=== PATIENT | female | born 1935 | race Hispanic/Latino ===

== ENCOUNTER 2017-04-17 10:32 | Emergency (ER) | payer MEDICARE ==
[~2017-04-17 10:32] MED LIST: ASPI-1005 PO; CARV6.2579 PO; ISOS30TA PO; LISI5TAB PO; SIMV20TA6 PO
[2017-04-17 11:21] LABS: APPEARANCE,URINE Clear (CLEAR); BILIRUBIN,URINE Negative (NEGATIVE); COLOR,URINE Yellow (YELLOW); GLUCOSE, URINE (UA) Negative (NEGATIVE); KETONES,URINE Negative (NEGATIVE); LEUKOCYTE ESTERASE ,URINE Negative (NEGATIVE); NITRATE,URINE Negative (NEGATIVE); OCCULT BLOOD,URINE Moderate (NEGATIVE); PROTEIN,URINE Negative (NEGATIVE); UROBILINOGEN,URINE 0.2 mg/dL (0.2-1.0)
[2017-04-17 11:27] LABS: BASOPHILS % (AUTO) 0.1 % (0.0-5.0); HEMATOCRIT 32.7 % (36-48); LYMPHOCYTES % (AUTO) 36.4 % (21.0-51.0); MEAN CORPUSCULAR HEMOGLOBIN 30.9 pg (27.0-33.0); MEAN CORPUSCULAR VOLUME 88.1 fL (79-99); MONOCYTES % (AUTO) 5.7 % (3.0-13.0); NEUTROPHILS % (AUTO) 57.8 % (40.0-77.0); PLATELET COUNT (AUTO) 191 K/uL (130-400); RED BLOOD CELL COUNT(AUTO) 3.71 MIL/uL (4.00-5.50); RED CELL DISTRIBUTION WIDTH 14.1 % (11.0-15.5); WHITE BLOOD COUNT (AUTO) 6.5 K/uL (4.8-10.8)
[2017-04-17 11:35] LABS: CREATININE 0.9 mg/dL (0.5-1.5); POTASSIUM 4.1 mmol/L (3.5-5.1)
[2017-04-17 11:40] LABS: ALBUMIN 3.1 g/dL (3.5-5.0); BILIRUBIN,TOTAL 0.3 mg/dL (0.2-1.0); TOTAL PROTEIN, SERUM 6.4 g/dL (6.0-8.3)
[2017-04-17 11:41] LABS: BACTERIA,URINE Rare /HPF (None Seen); WBC,URINE None Seen /HPF (0-1)
[2017-04-17 11:42] LABS: SQUAMOUS EPITHELIAL CELL,UR 0-2 /LPF (0-2)
== END 2017-04-17 15:30 | disposition home or self-care (01) ==
LOC: EDH 10:32
DX: K57.32 Diverticulitis of large intestine without perforation or abscess without bleeding (principal); I10 Essential (primary) hypertension; E78.5 Hyperlipidemia, unspecified
CPT/HCPCS: 36415; 74176; 80053; 81001; 83690; 85025

== ENCOUNTER → 2018-07-19 | Outpatient (CLI) | payer MEDICARE | END | disposition home or self-care (01) | LOC: SHCH 10:54 | PROVIDERS: ATTEND Internal Medicine Cardiovascular Disease | DX: R60.0 Localized edema (principal) | CPT/HCPCS: 93970 ==

== ENCOUNTER 2018-09-17 21:20 | Emergency (ER) | payer MEDICARE ==
[2018-09-17 21:56] LABS: APPEARANCE,URINE Clear (CLEAR); BILIRUBIN,URINE Negative (NEGATIVE); COLOR,URINE Yellow (YELLOW); GLUCOSE, URINE (UA) Negative (NEGATIVE); KETONES,URINE Negative (NEGATIVE); LEUKOCYTE ESTERASE ,URINE Large (NEGATIVE); NITRATE,URINE Negative (NEGATIVE); OCCULT BLOOD,URINE Moderate (NEGATIVE); PROTEIN,URINE Negative (NEGATIVE); UROBILINOGEN,URINE 0.2 mg/dL (0.2-1.0)
[2018-09-17 22:11] LABS: BACTERIA,URINE Few /HPF (None Seen); RBC,URINE None Seen /HPF (0-1)
[2018-09-17] MEDS ORDERED: ACETAMINOPHEN EXTRA STRENGTH 500 MG TABLET ONE (22:11)
[2018-09-17 22:28] LABS: BASOPHILS % (AUTO) 0.2 % (0.0-5.0); LYMPHOCYTES % (AUTO) 15.7 % (21.0-51.0); MEAN CORPUSCULAR HEMOGLOBIN 29.3 pg (27.0-33.0); MEAN CORPUSCULAR HGB CONC 33.1 g/dL (32.0-36.0); MEAN CORPUSCULAR VOLUME 88.5 fL (79-99); MONOCYTES % (AUTO) 6.5 % (3.0-13.0); NEUTROPHILS % (AUTO) 77.6 % (40.0-77.0); PLATELET COUNT (AUTO) 225 K/uL (130-400); RED BLOOD CELL COUNT(AUTO) 3.84 MIL/uL (4.00-5.50); RED CELL DISTRIBUTION WIDTH 14.1 % (11.0-15.5); WHITE BLOOD COUNT (AUTO) 9.3 K/uL (4.8-10.8)
[2018-09-17 22:47] LABS: CREATININE 1.7 mg/dL (0.5-1.5); POTASSIUM 4.2 mmol/L (3.5-5.1)
[2018-09-17 22:53] LABS: ALBUMIN 3.2 g/dL (3.5-5.0); BILIRUBIN,TOTAL 0.5 mg/dL (0.2-1.0); TOTAL PROTEIN, SERUM 6.9 g/dL (6.0-8.3)
[2018-09-17 22:57] LABS: INR 0.95 (0.85-1.15); PARTIAL THROMBOPLASTIN TIME 31.6 SEC (26.3-35.5)
[2018-09-17] MEDS ORDERED: CEFTRIAXONE SODIUM 1 GM ONE (23:39)
[2018-09-17] MEDS ORDERED: SODIUM CHLORIDE 0.9% 50 ML IV ONE (23:40)
== END 2018-09-18 00:13 | disposition home or self-care (01) ==
LOC: EDH 21:20
DX: N39.0 Urinary tract infection, site not specified (principal); E78.5 Hyperlipidemia, unspecified; I10 Essential (primary) hypertension; Z79.899 Other long term (current) drug therapy
CPT/HCPCS: 36415; 74176; 80053; 81001; 83605; 85025; 85610; 85730; 87040 ×2; 87088; 87186 ×2; 96374; 99285; J0696

== ENCOUNTER 2018-09-28 14:21 | Emergency (ER) | payer MEDICARE ==
[2018-09-28 14:42] LABS: APPEARANCE,URINE Clear (CLEAR); BILIRUBIN,URINE Negative (NEGATIVE); COLOR,URINE Yellow (YELLOW); GLUCOSE, URINE (UA) Negative (NEGATIVE); KETONES,URINE Negative (NEGATIVE); LEUKOCYTE ESTERASE ,URINE Negative (NEGATIVE); NITRATE,URINE Negative (NEGATIVE); OCCULT BLOOD,URINE Moderate (NEGATIVE); PH,URINE 5.5 (5.0-8.0); PROTEIN,URINE Negative (NEGATIVE); UROBILINOGEN,URINE 0.2 mg/dL (0.2-1.0)
[2018-09-28] MEDS ORDERED: LIDOCAINE HCL-MPF 1% 2ML VIAL ONE (15:01)
[2018-09-28] MEDS ORDERED: PHENAZOPYRIDINE HCL 200 MG TABLET ONE (15:01)
[2018-09-28] MEDS ORDERED: CEFTRIAXONE SODIUM 1 GM ONE (15:01)
== END 2018-09-28 15:46 | disposition home or self-care (01) ==
LOC: EDH 14:21
DX: N39.0 Urinary tract infection, site not specified (principal); I10 Essential (primary) hypertension; E78.5 Hyperlipidemia, unspecified; Z90.49 Acquired absence of other specified parts of digestive tract
CPT/HCPCS: 81003; 87088; 96372; 99284; J0696; J3490

== ENCOUNTER 2018-09-30 12:08 | Inpatient (IN) | payer MEDICARE | END 2018-10-08 17:30 | disposition home or self-care (01) | LOC: EDH 12:08 → EDHIP 14:15 → 3DH 15:13 | DX: K85.90 Acute pancreatitis without necrosis or infection, unspecified (principal); R10.11 Right upper quadrant pain; R74.0 Nonspecific elevation of levels of transaminase and lactic acid dehydrogenase [LDH]; K57.30 Diverticulosis of large intestine without perforation or abscess without bleeding ==

== ENCOUNTER 2018-11-03 05:25 | Day surgery (SDC) | payer MEDICARE ==
[~2018-11-03] VITALS: Ht 157.5 cm; Wt 65.8 kg
[~2018-11-03 05:25] MED LIST changes: +AMLO5TAB9 PO; -ASPI-1005 PO; +ATOR40TA71 PO; +BISA5TAB12 PO; +CARV12.511 PO; -CARV6.2579 PO; +ESOM40CA54 PO; -ISOS30TA PO; +LISI2.5T2 PO; -LISI5TAB PO; +NAPR-1023 PO; +OXYB5TAB10 PO; -SIMV20TA6 PO; +SUCR1TAB2 PO; +TRAZ-185 PO
[2018-11-03] MEDS ORDERED: SODIUM CHLORIDE 0.9% 1000ML 1,000 ML IV ONE (05:33)
[2018-11-03 06:07] VITALS: BP 127/54
[2018-11-03] MEDS ORDERED: PROPOFOL 10 MG/ML 20ML VIAL IV ONE (06:50)
[2018-11-03] MEDS ORDERED: SIMETHICONE 40 MG/0.6 ML ML ONE (06:58)
[2018-11-03 07:18] VITALS: BP 102/42
[2018-11-03 07:23] VITALS: BP 106/50
[2018-11-03 07:28] VITALS: BP 107/56
[2018-11-03 07:34] VITALS: BP 114/60
== END 2018-11-03 07:45 | disposition home or self-care (01) ==
LOC: ENDO 05:25 → DAH 05:25 → ENDO 07:45
PROVIDERS: ATTEND Internal Medicine
DX: K29.50 Unspecified chronic gastritis without bleeding (principal); K31.7 Polyp of stomach and duodenum; K44.9 Diaphragmatic hernia without obstruction or gangrene; I10 Essential (primary) hypertension; E78.5 Hyperlipidemia, unspecified; K21.9 Gastro-esophageal reflux disease without esophagitis; G47.00 Insomnia, unspecified; I25.10 Atherosclerotic heart disease of native coronary artery without angina pectoris; Z90.49 Acquired absence of other specified parts of digestive tract; Z90.710 Acquired absence of both cervix and uterus; Z79.899 Other long term (current) drug therapy; Z82.49 Family history of ischemic heart disease and other diseases of the circulatory system
CPT/HCPCS: 43239; 88305; 93005; A4606; J2704; J7030

== ENCOUNTER → 2019-11-29 | Outpatient (CLI) | payer MEDICARE ==
[~2019-11-29] MED LIST changes: -OXYB5TAB10 PO; +OXYB5TAB15 PO
== END | disposition home or self-care (01) ==
LOC: RAH 08:26
PROVIDERS: ATTEND Internal Medicine Gastroenterology
DX: N28.1 Cyst of kidney, acquired (principal); K85.00 Idiopathic acute pancreatitis without necrosis or infection; R93.2 Abnormal findings on diagnostic imaging of liver and biliary tract; R94.5 Abnormal results of liver function studies
CPT/HCPCS: 76700

== ENCOUNTER → 2020-10-09 | Outpatient (CLI) | payer MEDICARE ==
[~2020-10-09] MED LIST changes: +AMLO-257 PO; -AMLO5TAB9 PO; +LISI2.5T13 PO; -LISI2.5T2 PO
== END | disposition home or self-care (01) ==
LOC: SHCH 11:17
PROVIDERS: ATTEND Internal Medicine Cardiovascular Disease
DX: R01.1 Cardiac murmur, unspecified (principal)
CPT/HCPCS: 93306; 93356

== ENCOUNTER 2021-11-30 18:43 | Emergency (ER) | payer MEDICARE ==
[~2021-11-30] VITALS: Ht 152.4 cm; Wt 64.4 kg
[2021-11-30 19:45] LABS: BASOPHILS % (AUTO) 0.3 % (0.0-5.0); HEMATOCRIT 36.4 % (36-48); LYMPHOCYTES % (AUTO) 32.2 % (21.0-51.0); MEAN CORPUSCULAR HEMOGLOBIN 29.8 pg (27.0-33.0); MEAN CORPUSCULAR HGB CONC 34.1 g/dL (32.0-36.0); MEAN CORPUSCULAR VOLUME 87.5 fL (79-99); MONOCYTES % (AUTO) 6.8 % (3.0-13.0); PLATELET COUNT (AUTO) 205 K/uL (130-400); RED BLOOD CELL COUNT(AUTO) 4.16 MIL/uL (4.00-5.50); RED CELL DISTRIBUTION WIDTH 13.3 % (11.0-15.5); WHITE BLOOD COUNT (AUTO) 9.8 K/uL (4.8-10.8)
[2021-11-30 19:54] LABS: APPEARANCE,URINE CLEAR (CLEAR); BILIRUBIN,URINE NEGATIVE (NEGATIVE); COLOR,URINE YELLOW (YELLOW); GLUCOSE, URINE (UA) NEGATIVE (NEGATIVE); KETONES,URINE NEGATIVE (NEGATIVE); LEUKOCYTE ESTERASE ,URINE NEGATIVE Leu/uL (NEGATIVE); NITRATE,URINE NEGATIVE (NEGATIVE); OCCULT BLOOD,URINE MODERATE (NEGATIVE); PROTEIN,URINE NEGATIVE (NEGATIVE); UROBILINOGEN,URINE 0.2 mg/dL (0.2-1.0)
[2021-11-30 20:04] LABS: BACTERIA,URINE Rare /HPF (None Seen); SQUAMOUS EPITHELIAL CELL,UR Few /HPF (0-2); WBC,URINE 0-1 /HPF (0-1)
[2021-11-30 20:09] LABS: ALBUMIN 3.5 g/dL (3.5-5.0); CREATININE 1.2 mg/dL (0.5-1.5); POTASSIUM 4.1 mmol/L (3.5-5.1); TOTAL PROTEIN, SERUM 6.9 g/dL (6.0-8.3)
[2021-11-30] MEDS ORDERED: CEFTRIAXONE 1G VIAL IVP ONE (21:30)
[2021-11-30] MEDS ORDERED: CEPH500B PO (22:51)
[2021-11-30 23:16] VITALS: BP 149/55
== END 2021-11-30 23:31 | disposition home or self-care (01) ==
LOC: EDH 18:43
DX: N30.80 Other cystitis without hematuria (principal); I10 Essential (primary) hypertension; Z79.899 Other long term (current) drug therapy; Z98.890 Other specified postprocedural states
CPT/HCPCS: 99284; 74176; 96374; 80053; 85025; 81001; 36415; J0696

== ENCOUNTER → 2022-02-03 | Outpatient (CLI) | payer MEDICARE ==
[~2022-02-03] MED LIST changes: +BISA-151 PO; -BISA5TAB12 PO; +CEPH500B PO
[2022-02-03 12:10] LABS: ALBUMIN 3.4 g/dL (3.5-5.0); POTASSIUM 3.8 mmol/L (3.5-5.1)
== END | disposition home or self-care (01) ==
LOC: LAB 10:39
PROVIDERS: ATTEND Internal Medicine Cardiovascular Disease
DX: E78.2 Mixed hyperlipidemia (principal)
CPT/HCPCS: 36415; 80053; 80061

== ENCOUNTER 2022-02-14 10:10 | Emergency (ER) | payer MEDICARE ==
[~2022-02-14] VITALS: Ht 149.9 cm; Wt 64.0 kg
[2022-02-14 12:39] LABS: BASOPHILS % (AUTO) 0.4 % (0.0-5.0); HEMATOCRIT 39.3 % (36-48); LYMPHOCYTES % (AUTO) 16.3 % (21.0-51.0); MEAN CORPUSCULAR HEMOGLOBIN 29.5 pg (27.0-33.0); MEAN CORPUSCULAR HGB CONC 34.1 g/dL (32.0-36.0); MEAN CORPUSCULAR VOLUME 86.6 fL (79-99); MONOCYTES % (AUTO) 6.3 % (3.0-13.0); NEUTROPHILS % (AUTO) 75.1 % (40.0-77.0); PLATELET COUNT (AUTO) 273 K/uL (130-400); RED BLOOD CELL COUNT(AUTO) 4.54 MIL/uL (4.00-5.50); RED CELL DISTRIBUTION WIDTH 13.2 % (11.0-15.5); WHITE BLOOD COUNT (AUTO) 12.4 K/uL (4.8-10.8)
[2022-02-14 12:54] LABS: ALBUMIN 3.5 g/dL (3.5-5.0); POTASSIUM 3.6 mmol/L (3.5-5.1); TOTAL PROTEIN, SERUM 7.5 g/dL (6.0-8.3)
[2022-02-14 13:41] LABS: APPEARANCE,URINE CLEAR (CLEAR); BILIRUBIN,URINE NEGATIVE (NEGATIVE); COLOR,URINE COLORLESS (YELLOW); GLUCOSE, URINE (UA) NEGATIVE (NEGATIVE); KETONES,URINE NEGATIVE (NEGATIVE); LEUKOCYTE ESTERASE ,URINE NEGATIVE Leu/uL (NEGATIVE); NITRATE,URINE NEGATIVE (NEGATIVE); OCCULT BLOOD,URINE MODERATE (NEGATIVE); PROTEIN,URINE NEGATIVE (NEGATIVE); UROBILINOGEN,URINE 0.2 mg/dL (0.2-1.0)
[2022-02-14 13:48] LABS: BACTERIA,URINE RARE /HPF (None Seen); RBC,URINE 0-1 /HPF (0-1); SQUAMOUS EPITHELIAL CELL,UR RARE /HPF (0-2); WBC,URINE 0-1 /HPF (0-1)
[2022-02-14 15:08] VITALS: BP 134/70
== END 2022-02-14 15:22 | disposition home or self-care (01) ==
LOC: EDH 10:10
DX: M25.552 Pain in left hip (principal); N39.0 Urinary tract infection, site not specified; E78.00 Pure hypercholesterolemia, unspecified; I10 Essential (primary) hypertension; Z79.1 Long term (current) use of non-steroidal anti-inflammatories (NSAID); Z79.899 Other long term (current) drug therapy
CPT/HCPCS: 36415; 72131; 72192; 80053; 81001; 83690; 85025

== ENCOUNTER → 2022-02-26 | Outpatient (CLI) | payer MEDICARE | END | disposition home or self-care (01) | LOC: RAH 10:48 | PROVIDERS: ATTEND Internal Medicine Gastroenterology | DX: K21.9 Gastro-esophageal reflux disease without esophagitis (principal); R10.13 Epigastric pain; R93.2 Abnormal findings on diagnostic imaging of liver and biliary tract | CPT/HCPCS: 76700 ==

== ENCOUNTER → 2022-04-07 | Outpatient (CLI) | payer MEDICARE ==
[~2022-04-07] MED LIST changes: +DOCU-116 PO; +PHEN-776 PO
== END | disposition home or self-care (01) ==
LOC: RAH 07:14
PROVIDERS: ATTEND Internal Medicine Gastroenterology
DX: R10.13 Epigastric pain (principal); R11.0 Nausea
CPT/HCPCS: 78264; A9541

== ENCOUNTER → 2022-04-15 | Outpatient (CLI) | payer MEDICARE ==
[2022-04-15 13:11] LABS: ALBUMIN 3.1 g/dL (3.5-5.0); CREATININE 0.9 mg/dL (0.5-1.5); POTASSIUM 4.7 mmol/L (3.5-5.1); TOTAL PROTEIN, SERUM 6.7 g/dL (6.0-8.3)
== END | disposition home or self-care (01) ==
LOC: LAB 10:17
PROVIDERS: ATTEND Internal Medicine Cardiovascular Disease
DX: E78.2 Mixed hyperlipidemia (principal)
CPT/HCPCS: 36415; 80053; 80061

== ENCOUNTER 2022-04-28 19:14 | Emergency (ER) | payer MEDICARE ==
[~2022-04-28] VITALS: Ht 134.6 cm; Wt 60.8 kg
[2022-04-28 20:31] LABS: APPEARANCE,URINE CLEAR (CLEAR); BILIRUBIN,URINE NEGATIVE (NEGATIVE); COLOR,URINE COLORLESS (YELLOW); GLUCOSE, URINE (UA) NEGATIVE (NEGATIVE); KETONES,URINE NEGATIVE (NEGATIVE); LEUKOCYTE ESTERASE ,URINE 75 Leu/uL (NEGATIVE); NITRATE,URINE NEGATIVE (NEGATIVE); OCCULT BLOOD,URINE SMALL (NEGATIVE); PROTEIN,URINE NEGATIVE (NEGATIVE); UROBILINOGEN,URINE 0.2 mg/dL (0.2-1.0)
[2022-04-28 20:36] LABS: BACTERIA,URINE FEW /HPF (None Seen); SQUAMOUS EPITHELIAL CELL,UR RARE /HPF (0-2)
[2022-04-28] MEDS ORDERED: CEPH500B PO (21:28)
[2022-04-28 21:30] VITALS: BP 160/80
== END 2022-04-28 21:49 | disposition home or self-care (01) ==
LOC: EDH 19:14
DX: N39.0 Urinary tract infection, site not specified (principal); R51.9 Headache, unspecified; M19.90 Unspecified osteoarthritis, unspecified site; E78.00 Pure hypercholesterolemia, unspecified; I10 Essential (primary) hypertension; Z90.49 Acquired absence of other specified parts of digestive tract; Z20.822 Contact with and (suspected) exposure to COVID-19
CPT/HCPCS: 99283; 87635; 87077; 87088; 87186; 87880; 87804 ×2; 81001; C9803

== ENCOUNTER → 2022-05-14 | Outpatient (CLI) | payer MEDICARE | END | disposition home or self-care (01) | LOC: RAH 14:29 | PROVIDERS: ATTEND Internal Medicine | DX: S72.001A Fracture of unspecified part of neck of right femur, initial encounter for closed fracture (principal); K57.30 Diverticulosis of large intestine without perforation or abscess without bleeding; W19.XXXA Unspecified fall, initial encounter; Y93.89 Activity, other specified; Y92.89 Other specified places as the place of occurrence of the external cause; Y99.8 Other external cause status | CPT/HCPCS: 72192 ==

== ENCOUNTER → 2022-10-17 | Outpatient (CLI) | payer OTHER, MEDICARE ==
[2022-10-17 12:22] LABS: ALBUMIN 3.5 g/dL (3.5-5.0); BILIRUBIN,TOTAL 0.5 mg/dL (0.2-1.0); CREATININE 0.9 mg/dL (0.5-1.5); POTASSIUM 4.1 mmol/L (3.5-5.1); TOTAL PROTEIN, SERUM 7.2 g/dL (6.0-8.3)
== END | disposition home or self-care (01) ==
LOC: LAB 10:45
PROVIDERS: ATTEND Internal Medicine Cardiovascular Disease
DX: E78.00 Pure hypercholesterolemia, unspecified (principal)
CPT/HCPCS: 36415; 80053; 80061

== ENCOUNTER → 2023-08-24 | Outpatient (CLI) | payer MEDICARE ==
[~2023-08-24] MED LIST changes: -ESOM40CA54 PO; +ESOM40CA66 PO; -OXYB5TAB15 PO; +OXYB5TAB20 PO
[2023-08-24 12:35] LABS: BASOPHILS # (AUTO) 0.03 K/uL (0.00-0.20); BASOPHILS % (AUTO) 0.4 % (0.0-5.0); HEMATOCRIT 38.2 % (36-48); LYMPHOCYTES % (AUTO) 38.2 % (21.0-51.0); MEAN CORPUSCULAR HEMOGLOBIN 31.2 pg (27.0-33.0); MEAN CORPUSCULAR HGB CONC 32.5 g/dL (32.0-36.0); MONOCYTES # (AUTO) 0.5 K/uL (0.1-1.0); MONOCYTES % (AUTO) 6.6 % (3.0-13.0); NEUTROPHILS # (AUTO) 4.1 K/uL (1.8-7.7); NEUTROPHILS % (AUTO) 53.5 % (40.0-77.0); PLATELET COUNT (AUTO) 198 K/uL (130-400); RED BLOOD CELL COUNT(AUTO) 3.98 MIL/uL (4.00-5.50); RED CELL DISTRIBUTION WIDTH 13.2 % (11.0-15.5); WHITE BLOOD COUNT (AUTO) 7.7 K/uL (4.8-10.8)
[2023-08-24 12:48] LABS: ALBUMIN 3.3 g/dL (3.5-5.0); BILIRUBIN,TOTAL 0.4 mg/dL (0.2-1.0); CREATININE 0.9 mg/dL (0.5-1.0); POTASSIUM 4.2 mmol/L (3.5-5.1); TOTAL PROTEIN, SERUM 6.6 g/dL (6.0-8.3)
== END | disposition home or self-care (01) ==
LOC: LAB 09:33
PROVIDERS: ATTEND Internal Medicine Cardiovascular Disease
DX: I10 Essential (primary) hypertension (principal); E78.2 Mixed hyperlipidemia; I25.10 Atherosclerotic heart disease of native coronary artery without angina pectoris
CPT/HCPCS: 36415; 80053; 80061; 85025

== ENCOUNTER → 2023-10-19 | Outpatient (CLI) | payer MEDICARE ==
[~2023-10-19] MED LIST changes: -BISA-151 PO; -CARV12.511 PO; +CARV6.25 PO; -CEPH500B PO; -DOCU-116 PO; -ESOM40CA66 PO; +FAMO20TA8 PO; -LISI2.5T13 PO; -NAPR-1023 PO; +OLME20TA68 PO; -PHEN-776 PO; +SERT-439 PO; -TRAZ-185 PO
[2023-10-19 12:27] LABS: MAGNESIUM 1.7 mg/dL (1.80-2.40)
== END | disposition home or self-care (01) ==
LOC: LAB 09:42
PROVIDERS: ATTEND Internal Medicine Cardiovascular Disease
DX: I25.10 Atherosclerotic heart disease of native coronary artery without angina pectoris (principal); E78.5 Hyperlipidemia, unspecified
CPT/HCPCS: 36415; 80048; 83735

== ENCOUNTER → 2024-01-20 | Outpatient (CLI) | payer MEDICARE ==
[~2024-01-20] MED LIST changes: +AMIL5TAB8 PO; -AMLO-257 PO; +IOHEXOL 350 MG/ML 100ML INFUS..BTL IV ONE; -SERT-439 PO
--- NOTE | 2024-01-20 10:52 | HMCIMG ---
CT ABDOMEN/PELVIS W/CONTRAST HISTORY: Left lower abdominal pain COMPARISON: 09/11/2023 TECHNIQUE: Multiple sequential axial images of the abdomen and pelvis were obtained from the dome of the diaphragm through symphysis pubis. Patient was given 100 cc of Omnipaque through intravenous route. Oral contrast was given. FINDINGS: No pleural effusion is seen bilaterally. There is no evidence of parenchymal disease or pulmonary nodule of the visualized lower lungs. Degenerative changes of the thoracolumbar spine are present. The heart is not enlarged. Liver measures 14 cm. There is hiatal hernia. There is left anterior renal cyst measuring 3.6 cm. Bilateral renal cortical scarring is seen. There are hepatic cysts with the largest measuring 17 mm. No bowel obstruction is seen. There is diverticulosis. The liver, spleen, adrenal glands and pancreas are unremarkable. There is no evidence of hydronephrosis bilaterally. No evidence of renal stone is seen. Fecal material is seen in the colon. There are normal size retroperitoneal and mesenteric lymph nodes. No ascites is seen. Atherosclerotic changes are present. Right hip prosthesis is seen causing artifacts limiting evaluation. Pelvic sidewalls are symmetric bilaterally. Bladder is well distended without wall thickening. IMPRESSION: 1. Diverticulosis. No bowel obstruction. CT was performed with one or more following dose reduction techniques: automated exposure control, adjustment of the mA and kv according to patient's size, or use of a iterative reconstruction technique.
== END | disposition home or self-care (01) ==
LOC: RAH 07:51
PROVIDERS: ATTEND Internal Medicine Gastroenterology
DX: K57.30 Diverticulosis of large intestine without perforation or abscess without bleeding (principal); K44.9 Diaphragmatic hernia without obstruction or gangrene; K76.89 Other specified diseases of liver; I70.90 Unspecified atherosclerosis; R10.9 Unspecified abdominal pain; Z96.641 Presence of right artificial hip joint
CPT/HCPCS: 74177; Q9967

== ENCOUNTER → 2024-03-15 | Outpatient (CLI) | payer MEDICARE ==
[~2024-03-15] MED LIST changes: -IOHEXOL 350 MG/ML 100ML INFUS..BTL IV ONE
[2024-03-15 13:08] LABS: ALBUMIN 3.4 g/dL (3.5-5.0); BILIRUBIN,TOTAL 0.3 mg/dL (0.2-1.0); MAGNESIUM 1.9 mg/dL (1.80-2.40); POTASSIUM 4.8 mmol/L (3.5-5.1); TOTAL PROTEIN, SERUM 6.8 g/dL (6.0-8.3)
== END | disposition home or self-care (01) ==
LOC: LAB 10:49
PROVIDERS: ATTEND Internal Medicine Cardiovascular Disease
DX: I25.10 Atherosclerotic heart disease of native coronary artery without angina pectoris (principal)
CPT/HCPCS: 36415; 80053; 83735

== ENCOUNTER 2024-07-03 23:10 | Inpatient (IN) | payer MEDICARE ==
[~2024-07-03] VITALS: Ht 167.6 cm; Wt 63.0 kg
--- NOTE | 2024-07-03 23:16 | NUR ---
PATIENT REFUSED NASAL SWABS DUE TO POST OP INSTRUCTIONS OF NOTHING UP NOSE.
--- NOTE | 2024-07-04 01:30 | ERN ---
General Chief Complaint: Fatigue Stated Complaint: GENERAL WEAKNESS Time Seen by MD: 01:27 History of Present Illness Initial Comments Patient is an 89-year-old female who has had feelings of fatigue and being lightheaded over the last two days. She feels like she is going to faint. It is not vertigo. She wonders if it could be from her cough that she has had for the last week. Or if it is related to her left eye surgery that she had two days ago. She states no fever no chills no change in urination no change in bowel habits. Of note she is trying to provide a urine sample but so far has not been able to. Allergies: Coded Allergies: No Known Allergies (Unverified Allergy, 09/02/11) Home Meds Reported Medications Sucralfate (Sucralfate) 1 Gram Tablet, 1 GM PO TID, TAB 11/09/23 Famotidine (Famotidine) 20 Mg Tablet, 20 MG PO BID, TAB 11/09/23 Amiloride HCl (Amiloride HCl) 5 Mg Tablet, 5 MG PO DAILY, TAB 11/09/23 Olmesartan Medoxomil (Olmesartan Medoxomil) 20 Mg Tablet, 20 MG PO DAILY, TAB 09/11/23 Carvedilol (Carvedilol) 6.25 Mg Tablet, 6.25 MG PO BID, TAB 09/11/23 Atorvastatin Calcium (Atorvastatin Calcium) 40 Mg Tablet, 40 MG PO HS, TAB 11/02/18 Oxybutynin Chloride (Oxybutynin Chloride) 5 Mg Tablet, 5 MG PO HS, TAB 11/02/18 Past Medical History Past Medical History: Arthritis, Hypertension Past Surgical History: Other Surgical History Other: RIGHT HIP SX Family History Family History: Negative Social History Social History: Negative Female( History) History: Not Applicable Constitutional: (-) chills, (-) diaphoresis, (-) fever, (-) malaise, (-) weakness, (-) other documentation EENTM: (-) eye pain, (-) blurred vision, (-) tearing, (-) double vision, (-) ear pain, (-) ear discharge, (-) nose pain, (-) nose congestion, (-) throat pain, (-) Throat swelling, (-) mouth pain, (-) tooth pain, (-) mouth swelling, (-) other documentation Respiratory: (+) cough Cardiovascular: (-) chest pain, (-) edema, (-) palpitations, (-) syncope, (-) dyspnea on exertion, (-) other documentation Gastrointestinal/Abdominal: (-) nausea, (-) vomiting, (-) diarrhea, (-) abdominal pain, (-) abdominal distention, (-) constipation, (-) rectal bleeding, (-) dark stool/melena, (-) other documentation Musculoskeletal: (-) Neck pain, (-) back pain, (-) Flank Pain, (-) joint pain, (-) joint swelling, (-) muscle pain, (-) muscle stiffness, (-) gout, (-) other documentation Skin: (-) laceration, (-) contusion, (-) abrasion, (-) abscess, (-) rash, (-) change in color, (-) change in hair, (-) change in nails, (-) diaphoresis, (-) dryness, (-) other documentation Physical Exam General Appearance: (+) no apparent distress Orientation: (+) alert, (+) oriented x 3 Head/Face Trauma: No Eye: bilateral eye normal inspection, bilateral eye PERRL, bilateral eye EOMI Eyes Comment There is an infraorbital scar her left face along the along the left nostril. Uninfected. Ear, Nose, Throat: (+) hearing grossly normal, (+) normal ENT inspection, (+) moist mucous membraine Neck: (+) normal inspection, (+) supple Respiratory: (+) chest non-tender, (+) lungs clear, (+) well ventilated Heart: (+) regular, (+) murmur Gastrointestinal: (+) soft, (+) non-tender, (+) bowel sound present Results Laboratory and Microbiology Lab and Micro Result Laboratory Tests Test 07/04/24 01:48 White Blood Count 13.9 K/uL (4.8-10.8) H Red Blood Count 3.63 MIL/uL (4.00-5.50) L Hemoglobin 10.7 g/dL (12.0-16.0) L Hematocrit 32.5 % (36-48) L Mean Corpuscular Volume 89.5 fL (79-99) Mean Corpuscular Hemoglobin 29.5 pg (27.0-33.0) Mean Corpuscular Hemoglobin Concent 32.9 g/dL (32.0-36.0) Red Cell Distribution Width 13.0 % (11.0-15.5) Platelet Count 237 K/uL (130-400) Mean Platelet Volume 9.8 fL (7.5-10.5) Immature Granulocyte % (Auto) 1.0 % (0-1) Neutrophils (%) (Auto) 80.8 % (40.0-77.0) H Lymphocytes (%) (Auto) 13.5 % (21.0-51.0) L Monocytes (%) (Auto) 4.5 % (3.0-13.0) Eosinophils (%) (Auto) 0.0 % (0.0-8.0) Basophils (%) (Auto) 0.2 % (0.0-5.0) Neutrophils # (Auto) 11.3 K/uL (1.8-7.7) H Lymphocytes # (Auto) 1.9 K/uL (1.0-4.8) Monocytes # (Auto) 0.6 K/uL (0.1-1.0) Eosinophils # (Auto) 0.00 K/uL (0.00-0.70) Basophils # (Auto) 0.03 K/uL (0.00-0.20) Absolute Immature Granulocyte (auto 0.14 K/uL (0-1) Nucleated Red Blood Cells 0.0 % (0.0-0.19) Sodium Level 127 mmol/L (136-145) L Potassium Level 3.6 mmol/L (3.5-5.1) Chloride Level 94 mmol/L (101-111) L Carbon Dioxide Level 26 mmol/L (21-32) Blood Urea Nitrogen 19 mg/dL (7-18) H Creatinine 1.0 mg/dL (0.5-1.0) Glomerular Filtration Rate Calc 54 mL/min (>90) Random Glucose 138 mg/dL (70-105) H Total Calcium 9.1 mg/dL (8.5-10.1) MDM I will get a CBC chemistry panel. I will bolus the patient a L of fluid. I will also get a UA. Patient's CBC shows elevated white cell count with a strong left shift. The chemistry panel shows relatively moderate hyponatremia hypochloremia. Urine study is pending at this point. I will call the hospitalist to admit the patient to the service as the patient is very unsteady on her feet and her hyponatremia should be fixed before sending her home. HOSPITALIST HAVE ACCEPTED THE PATIENT ED Course Orders Procedure Category Date Status Time Basic Metabolic Panel LAB 07/04/24 Complete 01: Cbc With Differential LAB 07/04/24 Complete 01:31 Urinalysis Profile LAB 07/04/24 In Process 01:31 Lactated Ringers PHA 07/04/24 Complete 1000ml (Lactated 01:31 Current Medications Medications (Trade) Dose Ordered Sig/Kayla Route PRN Reason Start Time Stop Time Status Last Admin Dose Admin Lactated Ringer's (Lactated Ringers 1000ml) 1,000 ml BOLUS STAT IV 07/04/24 01:31 07/04/24 01:33 DC 07/04/24 03:51 Vital Signs Date Time Temp Pulse Resp B/P (MAP) Pulse Ox O2 Delivery O2 Flow Rate FiO2 07/04/24 03:51 70 18 99 Room Air* 0 21 07/03/24 23:12 100.6 63 18 141/64 96 Room Air 0 DX & DISP Disposition: Inpatient Departure Impression: Primary Impression: Hyponatremia Condition: Stable Referrals: SELF,REFERRAL (PCP) PUMA FERNANDEZ MD July 04, 2024 01:30
[2024-07-04 02:16] LABS: BASOPHILS # (AUTO) 0.03 K/uL (0.00-0.20); BASOPHILS % (AUTO) 0.2 % (0.0-5.0); HEMATOCRIT 32.5 % (36-48); IMMATURE GRANULOCYTE ABSOLUTE 0.14 K/uL (0-1); LYMPHOCYTES # (AUTO) 1.9 K/uL (1.0-4.8); LYMPHOCYTES % (AUTO) 13.5 % (21.0-51.0); MEAN CORPUSCULAR HEMOGLOBIN 29.5 pg (27.0-33.0); MEAN CORPUSCULAR HGB CONC 32.9 g/dL (32.0-36.0); MEAN CORPUSCULAR VOLUME 89.5 fL (79-99); MONOCYTES # (AUTO) 0.6 K/uL (0.1-1.0); MONOCYTES % (AUTO) 4.5 % (3.0-13.0); NEUTROPHILS # (AUTO) 11.3 K/uL (1.8-7.7); NEUTROPHILS % (AUTO) 80.8 % (40.0-77.0); PLATELET COUNT (AUTO) 237 K/uL (130-400); RED BLOOD CELL COUNT(AUTO) 3.63 MIL/uL (4.00-5.50); WHITE BLOOD COUNT (AUTO) 13.9 K/uL (4.8-10.8)
[2024-07-04 02:20] LABS: POTASSIUM 3.6 mmol/L (3.5-5.1)
--- NOTE | 2024-07-04 03:36 | NUR ---
PATIENT IN BATHROOM TRYING TO OBTAIN A URINE SAMPLE, STATES CONSTIPATION.
[2024-07-04] MEDS: LACTATED RINGERS 1000ML IV STA (03:51)
--- NOTE | 2024-07-04 03:51 | NUR ---
PATIENT CARE ASSUMED AT THIS TIME
[2024-07-04 06:37] LABS: APPEARANCE,URINE CLEAR (CLEAR); BILIRUBIN,URINE NEGATIVE (NEGATIVE); COLOR,URINE LIGHT-YELLOW (YELLOW); GLUCOSE, URINE (UA) NEGATIVE (NEGATIVE); KETONES,URINE NEGATIVE (NEGATIVE); LEUKOCYTE ESTERASE ,URINE NEGATIVE Leu/uL (NEGATIVE); NITRATE,URINE NEGATIVE (NEGATIVE); PROTEIN,URINE NEGATIVE (NEGATIVE); UROBILINOGEN,URINE 0.2 mg/dL (0.2-1.0)
[2024-07-04 06:42] LABS: ADD UA MICROSCOPIC YES; WBC,URINE 0-1 /HPF (0-1)
[2024-07-04] MEDS ORDERED: oxyCODONE/aceTAMIN 5/325MG TAB PO PRN (09:30)
[2024-07-04] MEDS ORDERED: MAG/ALUM/SIMETH 30 ML UDCUP PO PRN (09:30)
[2024-07-04] MEDS ORDERED: MAGNESIUM 2GM PREMIX 50ML 50 ML IV PRN (09:30)
[2024-07-04] MEDS ORDERED: hydrALAZine 20MG/ML VIAL IV PRN (09:30)
[2024-07-04] MEDS ORDERED: GLUCAGON 1MG KIT 1 MG ML IM PRN (09:30)
[2024-07-04] MEDS ORDERED: DEXTROSE 50%-WATER 50 ML DISP.SYRIN IV PRN (09:30)
[2024-07-04] MEDS ORDERED: ketOROlac 15MG/ML VIAL (15MG/ML) IV PRN (09:30)
[2024-07-04] MEDS ORDERED: DiphenhydrAMINE HCL 50 MG/ML VIAL IV PRN (09:30)
[2024-07-04] MEDS ORDERED: acetaMINOPHEN 325 MG TAB PO PRN ×2 (09:30)
[2024-07-04] MEDS ORDERED: PoTASSium chloRIDE 20MEQ ER 20 MEQ ERTAB PO PRN (09:30)
[2024-07-04] MEDS ORDERED: morPHINE 2 MG SYG IVP PRN (09:30)
[2024-07-04] MEDS ORDERED: FAMOTIDINE 20MG VIAL IV PRN (09:30)
[2024-07-04] MEDS ORDERED: ondanSETRON 4MG INJ IV PRN (09:30)
[2024-07-04] MEDS ORDERED: PoTASSium chloRIDE 10MEQ/100ML 100 ML IV PRN (09:30)
[2024-07-04] MEDS ORDERED: cefTRIAXone 1G VIAL 2 GM in 0.9%NACL 100ML 100 ML IV SCH (09:30)
[2024-07-04] MEDS ORDERED: NITROGLYCERIN 0.4 MG SL TAB SL PRN (09:30)
[2024-07-04] MEDS ORDERED: ZOLPidem TARTrate 5 MG TAB PO PRN (09:30)
[2024-07-04] MEDS ORDERED: PoTASSium chl 10% ELIXIR 20MEQ 20 MEQ/15 ML UDCUP PO PRN (09:30)
--- NOTE | 2024-07-04 09:52 | HMCIMG ---
Exam Type: CHEST 1VW Clinical Information: congestion Comparison: None Findings: The lungs are clear of infiltrates. The heart is normal in size. The bony and soft tissue structures of the chest are unremarkable. Impression: Clear lungs.
--- NOTE | 2024-07-04 10:15 | NUR ---
Assumed patients care.
--- NOTE | 2024-07-04 10:20 | NUR ---
Patient had a bowel movement. soft, stated she was given Lactulose yesterday due to complaints of constipation for 2 days.
[2024-07-04] MEDS ORDERED: SERT-439 PO (10:37)
[2024-07-04] MEDS ORDERED: MEMA5TAB16 PO (10:37)
[2024-07-04] MEDS ORDERED: NEO/5DRO7 OS (10:42)
[2024-07-04] MEDS ORDERED: AMLO-257 PO (10:42)
[2024-07-04] MEDS ORDERED: FLUT16H EN (10:42)
[2024-07-04] MEDS ORDERED: CETI10TA57 PO (10:42)
--- NOTE | 2024-07-04 10:43 | NUR ---
Home medications reviewed. Pending to be reniewed by physician.
--- NOTE | 2024-07-04 10:50 | NUR ---
Patient refuses being swab for covid, flu a/b. Stated she does not need that test. Educated patient and adult daughter of the importance of following physicians orders. They vernalized understanding.
[2024-07-04] MEDS: LACTATED RINGERS 1000ML 1,000 ML IV SCH (10:57)
[2024-07-04] MEDS: CEFTRIAXONE 2GM VIAL IVPB SCH (10:57)
[2024-07-04] MEDS: INSULIN humuLIN R 100 UNIT/ML 3ML SQ SCH (11:30)
--- NOTE | 2024-07-04 12:06 | NUR ---
Blood glucose 115. No insulin coverage needed at this time.
--- NOTE | 2024-07-04 13:53 | NUR ---
CALLED FOR REPORT. SPOKE WITH MRS. ANUM LEWIS.
--- NOTE | 2024-07-04 14:04 | NUR ---
DCP: HOME Pt lives at home with her Wallace, who is currently on hospice, reports daughter Olivier [phone]. Pt is very hard or hearing and does no have hearing aids with her. Daughter is provider 20+hrs thru [facility] and stays with parents during the day. Daughter Terra stays with parents during the night. Pt has a walker cane and shower chair. No HH or HD services. DCP is home- PCP is Justin Dean and uses [facility] for rx needs. Addendum: 07/04/24 at 1408 by ANDREA SAUCEDA Amended: Links added.
[2024-07-04 14:10] VITALS: O2SAT 97
[2024-07-04 15:15] VITALS: BP 157/67; PULSE 65; RESP 18; TEMP 98.6
[2024-07-04 16:19] LABS: INFLUENZA TYPE A Negative For Type A (NEGATIVE); INFLUENZA TYPE B Negative For Type B (NEGATIVE)
[2024-07-04 16:20] VITALS: BP 157/67; PULSE 67; RESP 18; TEMP 98.6
--- NOTE | 2024-07-04 17:23 | PN ---
[facility] PROGRESS NOTE Date of Service: July 04, 2024 Time of Service: 16:40 PCP: Corinne Boyd in [facility] Admitting: Dr Leary, Allergies: No Allergy Information Available, No Known Drug Allergies SUBJECTIVE: [ Patient is 89 years old female with a past medical history of hypertension, left eye recent surgery with the tube placement due to problems with tears?, depression, anxiety, hyperlipidemia, CKD, vitamin-D deficiency, gastritis, early dementia, who came to emergency department with a complaint of feeling of fainting and being lightheaded for the past about2 to 3 days. Family member at the bedside/daughter stated that patient has been walking the house with a feeling of fainting. Patient was also complaining of cough for the past about a month only at night. Patient denies any fever, chills.] Most recent vital signs temperature 98.6� pulse 67 respiration 18 blood pressure 157/67. Patient is on room air satting 99%. WBC 13.9 hemoglobin 10.7 hematocrit 32.5 Platelets [id number] potassium 3.6 CO2 26 BUN 19 creatinine 1.0 GFR 19 random glucose 113. Total calcium 9.1 . Influenza A negative. Influenza B negative. Urinalysis negative for leukocytosis or nitrates. Chest x-ray showed clear lungs. Echocardiogram 09/13/2023 showed EF more than 55% stage I diastolic dysfunction. No pericardial effusion. Patient will be admitted under hospitalist care for further evaluation/recommendations. REVIEW OF SYSTEMS CONSTITUTIONAL: Denies fevers, chills, or night sweats. No unintentional weight loss reported. NEUROLOGICAL: Denies headache, amaurosis fugax, motor weakness, sensory deficit, vertigo/spinning sensation, gait abnormalities, or tremors. Lightheadedness generalized body weakness ENT: No hearing loss, otalgia, otorrhea, rhinitis, rhinorrhea, hoarseness, or sore throat. CARDIOVASCULAR: Denies any exertional angina, dyspnea on exertion, orthopnea, paroxysmal nocturnal dyspnea, palpitations, life-threatening arrhythmias, claudication. PULMONARY: Denies any shortness of breath, cough, phlegm/sputum, hemoptysis, pleuritic chest pain. SLEEP: Denies morning headaches, daytime somnolence or napping. Denies difficulty falling asleep, staying asleep, waking from sleep. Denies knowledge of snoring. GASTROINTESTINAL: Denies any type of dysphagia to either liquids or solids. Denies nausea, vomiting, pyrosis, early satiety, abdominal pain, diarrhea, constipation, or changes in stool consistency or caliber. Denies coffee-ground emesis, hematemesis, hematochezia, or melanotic stools. GENITOURINARY: Denies frequency, urgency, nocturia, hematuria or incontinence (Storage/Irritative symptoms.) Low urinary stream, straining to void, urinary intermittency or hesitancy, splitting of the voiding stream, terminal dribbling. ENDOCRINOLOGIC: Denies polyuria, polydipsia, polyphagia or heat/cold intolerances. HEMATOLOGIC: Denies thrombophilia/previous clots, or coagulopathy/bleeding disorders. ONCOLOGIC: Denies personal history of malignancy. DERMATOLOGIC: Denies rashes or pruritus. PSYCHIATRIC: Denies any suicidal or homicidal ideation. Denies hallucinations. PHYSICAL EXAM GENERAL APPEARANCE: The patient is awake, alert, and oriented, in no acute cardiopulmonary distress. NEUROLOGICAL: Cranial nerves II-XII grossly intact. Motor is 5/5 in bilateral upper and lower extremities proximal to distal. No sensory deficits. HEENT: Face is symmetric. Pupils are equal and reactive. Extraocular movements are intact. NECK: Supple. No JVD. No thyromegaly. No submental, submandibular, pre- /postauricular, occipital or supraclavicular lymphadenopathy. CHEST: Normal chest expansion. No Telemetry. LUNGS: Absence of any rales, rhonchi or any wheezing. CARDIOVASCULAR: Regular. S1 and S2 normal. No appreciable rubs, murmurs or gallops. ABDOMEN: Soft, nontender, and nondistended. There is no rebound, voluntary guarding, or rigidity. : Deferred. No Luciano. EXTREMITIES: Non-edematous and not cyanotic. No clubbing. Good capillary refill. SKIN: No skin breakdown. Vital Signs (last 8hr) Date Time Temp Pulse Resp B/P (MAP) Pulse Ox O2 Delivery O2 Flow Rate FiO2 07/04/24 16:20 98.6 67 18 157/67 99 Room Air 07/04/24 15:15 98.6 65 18 157/67 98 Room Air 07/04/24 14:10 97 Room Air* 0 21 07/04/24 12:00 99.0 64 16 155/73 99 Room Air* 0 21 07/04/24 10:20 98.1 69 16 155/69 99 Room Air* 0 21 LABS: Laboratory: Test 07/04/24 15:55 07/04/24 15:30 07/04/24 05:17 07/04/24 01:48 Range/Units Influenza Type A Antigen Negative For Type A NEGATIVE Influenza Type B Antigen Negative For Type B NEGATIVE Whole Blood Glucose 113 H 70-110 MG/DL Urine Color LIGHT-YELLOW YELLOW Urine Appearance CLEAR CLEAR Urine pH 6.0 5.0-8.0 Urine Specific Oscar 1.008 1.001-1.031 Urine Protein NEGATIVE NEGATIVE mg/dL Urine Glucose (UA) NEGATIVE NEGATIVE mg/dL Urine Ketones NEGATIVE NEGATIVE mg/dL Urine Occult Blood +- (TRACE) H NEGATIVE Urine Nitrate NEGATIVE NEGATIVE Urine Bilirubin NEGATIVE NEGATIVE mg/dL Urine Urobilinogen 0.2 0.2-1.0 mg/dL Urine Leukocyte Esterase NEGATIVE NEGATIVE Fredi/uL Urine RBC 6-10 H 0-1 /HPF Urine WBC 0-1 0-1 /HPF Urine Bacteria None None Seen /HPF White Blood Count 13.9 H 4.8-10.8 K/uL Red Blood Count 3.63 L 4.00-5.50 MIL/uL Hemoglobin 10.7 L 12.0-16.0 g/dL Hematocrit 32.5 L 36-48 % Mean Corpuscular Volume 89.5 79-99 fL Mean Corpuscular Hemoglobin 29.5 27.0-33.0 pg Mean Corpuscular Hemoglobin Concent 32.9 32.0-36.0 g/dL Red Cell Distribution Width 13.0 11.0-15.5 % Platelet Count 237 130-400 K/uL Mean Platelet Volume 9.8 7.5-10.5 fL Immature Granulocyte % (Auto) 1.0 0-1 % Neutrophils (%) (Auto) 80.8 H 40.0-77.0 % Lymphocytes (%) (Auto) 13.5 L 21.0-51.0 % Monocytes (%) (Auto) 4.5 3.0-13.0 % Eosinophils (%) (Auto) 0.0 0.0-8.0 % Basophils (%) (Auto) 0.2 0.0-5.0 % Neutrophils # (Auto) 11.3 H 1.8-7.7 K/uL Lymphocytes # (Auto) 1.9 1.0-4.8 K/uL Monocytes # (Auto) 0.6 0.1-1.0 K/uL Eosinophils # (Auto) 0.00 0.00-0.70 K/uL Basophils # (Auto) 0.03 0.00-0.20 K/uL Absolute Immature Granulocyte (auto 0.14 0-1 K/uL Nucleated Red Blood Cells 0.0 0.0-0.19 % Sodium Level 127 L 136-145 mmol/L Potassium Level 3.6 3.5-5.1 mmol/L Chloride Level 94 L 101-111 mmol/L Carbon Dioxide Level 26 21-32 mmol/L Blood Urea Nitrogen 19 H 7-18 mg/dL Creatinine 1.0 0.5-1.0 mg/dL Glomerular Filtration Rate Calc 54 >90 mL/min Random Glucose 138 H 70-105 mg/dL Total Calcium 9.1 8.5-10.1 mg/dL Current Medications Medications (Trade) Dose Ordered Sig/Kayla Route PRN Reason Start Time Stop Time Status Last Admin Dose Admin Acetaminophen (TYLenol 325MG TAB) 650 mg Q4H PRN PO MILD PAIN (1-3) 07/04/24 09:30 08/03/24 09:29 Acetaminophen (TYLenol 325MG TAB) 650 mg Q6H PRN PO MILD PAIN (1-3) 07/04/24 09:30 07/04/24 09:34 DC Acetaminophen (TYLenol 325MG TAB) 650 mg Q6H PRN PO TEMPERATURE GREATER THAN 101.5 07/04/24 09:30 08/03/24 09:29 Al Hydroxide/Mg Hydroxide (MAALox PLUS 30ML) 30 ml Q6H PRN PO INDIGESTION 07/04/24 09:30 08/03/24 09:29 Ceftriaxone Sodium 2 gm/ Sodium Chloride 100 ml @ 200 mls/hr Q24H IV 07/04/24 09:30 07/04/24 09:35 DC Ceftriaxone Sodium (Rocephin 2gm Inj) 2 gm Q24H IVPB 07/04/24 10:00 07/14/24 09:59 07/04/24 10:57 2 GM Dextrose (D50w) 50 ml AD PRN IV HYPOGLYCEMIA PROTOCOL 07/04/24 09:30 08/03/24 09:29 Diphenhydramine HCl (BENAdryl INJ) 25 mg Q6H PRN IV SEVERE ITCHING/RASH 07/04/24 09:30 08/03/24 09:29 Famotidine (Pepcid 20mg Vial) 20 mg BID PRN IV NAUSEA/VOMITING 07/04/24 09:30 07/04/24 09:35 DC Famotidine (Pepcid 20mg Vial) 20 mg QODAY IV 07/05/24 09:00 08/04/24 08:59 Glucagon (Glucagon 1mg Kit) 1 mg AD PRN IM HYPOGLYCEMIA PROTOCOL 07/04/24 09:30 08/03/24 09:29 Guaifenesin/ Dextromethorphan (RobiTUSSin DM 200/20MG 10ML) 10 ml Q4H PRN PO COUGH 07/04/24 09:30 08/03/24 09:29 Heparin Sodium (Porcine) (HEParin 5,000 UNIT VIAL) 5,000 unit BID SQ 07/04/24 21:00 08/03/24 20:59 Hydralazine HCl (APRESOLine 20MG INJ) 10 mg Q6H PRN IV For:SBP above 160;DBP above 90 07/04/24 09:30 08/03/24 09:29 Insulin Human Regular (humuLIN R 100 UNIT/ML 3ML) INSULIN SLIDING SCAL... ACHS SQ 07/04/24 11:30 08/03/24 11:29 Ketorolac Tromethamine (toRADol) 15 mg Q8H PRN IV MODERATE PAIN (4-6) 07/04/24 09:30 07/04/24 09:37 DC Lactated Ringer's 1,000 ml @ 100 mls/hr Q10H IV 07/04/24 09:30 08/03/24 09:29 07/04/24 10:57 100 MLS/HR Lactated Ringer's (Lactated Ringers 1000ml) 1,000 ml BOLUS STAT IV 07/04/24 01:31 07/04/24 01:33 DC 07/04/24 03:51 1,000 ML Lactulose (Constulose 20gm/ 30ml Udcup) 20 gm BID PRN PO CONSTIPATION 07/04/24 09:30 08/03/24 09:29 Magnesium Sulfate 50 ml @ 0 mls/hr PROTOCOL PRN IV other 07/04/24 09:30 08/03/24 09:29 Morphine Sulfate (morPHINE 2MG SYG) 1 mg Q4H PRN IVP MODERATE PAIN (4-6) 07/04/24 09:30 07/11/24 09:29 Nitroglycerin (Nitrostat) 0.4 mg PROTOCOL PRN SL CHEST PAIN 07/04/24 09:30 08/03/24 09:29 Ondansetron HCl (zoFRAN 4MG INJ) 4 mg Q6H PRN IV NAUSEA/VOMITING 07/04/24 09:30 08/03/24 09:29 Oxycodone/ Acetaminophen (perCOCET) 1 tab Q6H PRN PO SEVERE PAIN (7-10) 07/04/24 09:30 07/11/24 09:29 Potassium Chloride 100 ml @ 100 mls/hr AD PRN IV POTASSIUM PROTOCOL 07/04/24 09:30 08/03/24 09:29 Potassium Chloride (K-Dur/Klor-Con 20meq) 10 meq AD PRN PO POTASSIUM PROTOCOL 07/04/24 09:30 08/03/24 09:29 Potassium Chloride (KCl 10% Elixir 20meq/15ml) 10 meq AD PRN PO POTASSIUM PROTOCOL 07/04/24 09:30 08/03/24 09:29 Zolpidem Tartrate (AmbIEN) 5 mg HS PRN PO INSOMNIA 07/04/24 09:30 08/03/24 09:29 DIAGNOSTICS / RADIOLOGY: [ ] ASSESSMENT: [Generalized body weakness POA Lightheadedness POA Electrolyte imbalance hyponatremia Na 127 POA Acute dehydration POA Acute on chronic diastolic congestive heart failure EF more than 55% per 2D echo 09/13/2023 uncontrolled diabetes mellitus type with hyperglycemia POA Leukocytosis WBC 13.9 POA Vitamin-D deficiency POA Gastritis POA Early dementia POA Hyperlipidemia POA Depression POA Anxiety POA History of left eye tube insertion of the right eye ] PLAN: [ Admit to: Medical-surgical Consults: None Antibiotics: Rocephin2 g daily Tests: 2D echo, orthostatic vital signs NEURO: Minimize central acting medications as possible. Fall Precautions. Well lighted room through the day and minimize interruptions through the night to prevent acute delirium. PULMONARY: Chest x-ray negative Influenza A negative Influenza B negative COVID negative Supplemental 02 as needed BiPAP as necessary, for respiratory distress Titrate Fio2 to keep Spo2 > or = 90% DuoNeb�s and CPT as needed IS hourly while awake for pulmonary hygiene Out of bed to chair as tolerated Maintain aspiration precautions at all times CARDIOVASCULAR: 2D echo pending Follow hemodynamics. Vital signs per facility protocol GI & NUTRITION: Continue nutritional support Aspirations precautions Prokinetic agents and laxatives as needed KIDNEYS & ELECTROLYTES: Strict monitoring of intake and output Daily weights Avoid nephrotoxic agents Monitor electrolytes and replace as needed Goal urine output of 30mL/hr or 0.5mL/kg/hr Medications to be dosed according to renal function. Avoid contrast if possible ENDOCRINE: Maintain blood glucose between 100-180 at all times. Insulin sliding scale for blood glucose management Hypoglycemia and hyperglycemia protocol in place INFECTIOUS DISEASE: Trend temperature, WBC and procalcitonin level Follow cultures, deescalate antibiotics as soon as possible. Panculture if new onset fever HEMATOLOGY & COAGULATION: Monitor H&H. Keep Hgb > 7 Transfuse 1 unit of PRBC for Hgb < 7 Transfuse 1 pack of platelets of platelets < 20, 000 Watch for any signs and symptoms of bleeding SKIN: Pressure ulcer prevention per facility protocol Specialty mattress as needed Treatment plan discussed with patient and family at the bedside Medications to be reconciled once obtained by patient and/or family and available to be reconciled in computer p.r.n. medication for pain nausea and vomiting Questions were answered We will continue to monitor the patient closely [employer] Manager for disposition Rehab: PT/OT GI: PPI DVT: SCD's Code Status: Full Resuscitation Disposition: TBD Prognosis: Guarded] ADVANCED CARE PLANNING 1. Which of the following were discussed? Hospice Care - Yes / No Therapeutic options - Yes / No Advance Directives - Yes / No Other discussions - 2. Discussed with who? Patient 3. Voluntary nature of this service was explained to the patient? Yes / No 4. Amount of time spent - ___35 minutes ____ 5. Reviewed by Physician? (if this service was performed by NPP) Yes / No ATTESTATION BY PHYSICIAN I have seen and examined the patient. I reviewed the documentation, medical decision making, and treatment plan as noted by the mid-level provider above. I agree with the findings and plan of care. SUSAN LEARY MD, [employer] July 04, 2024 17:23
[2024-07-04 20:00] VITALS: BP 128/67; PULSE 72; RESP 17; TEMP 98.9
[2024-07-04] MEDS: HEParin 5,000 UNIT VIAL SQ SCH (20:18)
[2024-07-04 23:45] VITALS: BP 126/58; PULSE 68; RESP 16; TEMP 98.8
[2024-07-05] VITALS (8 sets, daily range): BP systolic 125–181; BP diastolic 50–73; PULSE 59–79; RESP 17–18; TEMP 97.9–98.8; O2SAT 98
[2024-07-05] MEDS: guaiFENesin-DM 200/20MG 10ML PO PRN (01:33)
[2024-07-05] MEDS: acetaMINOPHEN 325 MG TAB PO PRN (01:35)
[2024-07-05 07:05] LABS: BASOPHILS # (AUTO) 0.02 K/uL (0.00-0.20); BASOPHILS % (AUTO) 0.2 % (0.0-5.0); EOSINOPHILS # (AUTO) 0.01 K/uL (0.00-0.70); EOSINOPHILS % (AUTO) 0.1 % (0.0-8.0); IMMATURE GRANULOCYTE ABSOLUTE 0.11 K/uL (0-1); LYMPHOCYTES # (AUTO) 2.6 K/uL (1.0-4.8); LYMPHOCYTES % (AUTO) 26.1 % (21.0-51.0); MEAN CORPUSCULAR HEMOGLOBIN 29.4 pg (27.0-33.0); MEAN CORPUSCULAR HGB CONC 32.6 g/dL (32.0-36.0); MEAN CORPUSCULAR VOLUME 90.4 fL (79-99); MONOCYTES # (AUTO) 0.7 K/uL (0.1-1.0); MONOCYTES % (AUTO) 7.5 % (3.0-13.0); NEUTROPHILS # (AUTO) 6.5 K/uL (1.8-7.7); PLATELET COUNT (AUTO) 240 K/uL (130-400); RED BLOOD CELL COUNT(AUTO) 3.43 MIL/uL (4.00-5.50); RED CELL DISTRIBUTION WIDTH 13.1 % (11.0-15.5); WHITE BLOOD COUNT (AUTO) 9.9 K/uL (4.8-10.8)
[2024-07-05 07:08] LABS: HEMOGLOBIN A1C 5.9 % (4.0-6.0)
[2024-07-05 07:16] LABS: ALBUMIN 2.5 g/dL (3.5-5.0); BILIRUBIN,DIRECT 0.2 mg/dL (0.0-0.3); BILIRUBIN,TOTAL 0.4 mg/dL (0.2-1.0); MAGNESIUM 1.7 mg/dL (1.80-2.40); TOTAL PROTEIN, SERUM 6.4 g/dL (6.0-8.3)
[2024-07-05] MEDS ORDERED: PoTASSium chloRIDE 10MEQ SR 10 MEQ/TAB TAB.SR.24H PO PRN (08:30)
[2024-07-05] MEDS: FAMOTIDINE 20MG VIAL IV SCH (09:05)
[2024-07-05] MEDS ORDERED: MAGNESIUM 2GM PREMIX 50ML 50 ML IV SCH (10:00)
--- NOTE | 2024-07-05 12:20 | HP ---
[facility] HISTORY AND PHYSICAL Date of Service: July 04, 2024 Time of Service: 16:40 PCP: Corinne Boyd in [facility] Admitting: Dr Leary, Allergies: No Allergy Information Available, No Known Drug Allergies HISTORY OF PRESENT ILLNESS: [ Patient is 89 years old female with a past medical history of hypertension, left eye recent surgery with the tube placement due to problems with tears?, depression, anxiety, hyperlipidemia, CKD, vitamin-D deficiency, gastritis, early dementia, who came to emergency department with a complaint of feeling of fainting and being lightheaded for the past about2 to 3 days. Family member at the bedside/daughter stated that patient has been walking the house with a feeling of fainting. Patient was also complaining of cough for the past about a month only at night. Patient denies any fever, chills.] Most recent vital signs temperature 98.6� pulse 67 respiration 18 blood pressure 157/67. Patient is on room air satting 99%. WBC 13.9 hemoglobin 10.7 hematocrit 32.5 Platelets [id number] potassium 3.6 CO2 26 BUN 19 creatinine 1.0 GFR 19 random glucose 113. Total calcium 9.1 . Influenza A negative. Influenza B negative. Urinalysis negative for leukocytosis or nitrates. Chest x-ray showed clear lungs. Echocardiogram 09/13/2023 showed EF more than 55% stage I diastolic dysfunction. No pericardial effusion. Patient will be admitted under hospitalist care for further evaluation/recommendations. ] REVIEW OF SYSTEMS CONSTITUTIONAL: Denies fevers, chills, or night sweats. No unintentional weight loss reported. NEUROLOGICAL: Denies headache, amaurosis fugax, motor weakness, sensory deficit, vertigo/spinning sensation, gait abnormalities, or tremors. Lightheadedness generalized body weakness ENT: No hearing loss, otalgia, otorrhea, rhinitis, rhinorrhea, hoarseness, or sore throat. CARDIOVASCULAR: Denies any exertional angina, dyspnea on exertion, orthopnea, paroxysmal nocturnal dyspnea, palpitations, life-threatening arrhythmias, claudication. PULMONARY: Denies any shortness of breath, cough, phlegm/sputum, hemoptysis, pleuritic chest pain. SLEEP: Denies morning headaches, daytime somnolence or napping. Denies difficulty falling asleep, staying asleep, waking from sleep. Denies knowledge of snoring. GASTROINTESTINAL: Denies any type of dysphagia to either liquids or solids. Denies nausea, vomiting, pyrosis, early satiety, abdominal pain, diarrhea, constipation, or changes in stool consistency or caliber. Denies coffee-ground emesis, hematemesis, hematochezia, or melanotic stools. GENITOURINARY: Denies frequency, urgency, nocturia, hematuria or incontinence (Storage/Irritative symptoms.) Low urinary stream, straining to void, urinary intermittency or hesitancy, splitting of the voiding stream, terminal dribbling. ENDOCRINOLOGIC: Denies polyuria, polydipsia, polyphagia or heat/cold intolerances. HEMATOLOGIC: Denies thrombophilia/previous clots, or coagulopathy/bleeding disorders. ONCOLOGIC: Denies personal history of malignancy. DERMATOLOGIC: Denies rashes or pruritus. PSYCHIATRIC: Denies any suicidal or homicidal ideation. Denies hallucinations. PAST MEDICAL HISTORY: [ ] PAST SURGICAL HISTORY: [ ] PAST SOCIAL HISTORY: [ ] FAMILY HISTORY: [ ] Coded Allergies: No Known Allergies (Unverified Allergy, 09/02/11) PHYSICAL EXAM GENERAL APPEARANCE: The patient is awake, alert, and oriented, in no acute cardiopulmonary distress. NEUROLOGICAL: Cranial nerves II-XII grossly intact. Motor is 5/5 in bilateral upper and lower extremities proximal to distal. No sensory deficits. HEENT: Face is symmetric. Pupils are equal and reactive. Extraocular movements are intact. NECK: Supple. No JVD. No thyromegaly. No submental, submandibular, pre- /postauricular, occipital or supraclavicular lymphadenopathy. CHEST: Normal chest expansion. No Telemetry. LUNGS: Absence of any rales, rhonchi or any wheezing. CARDIOVASCULAR: Regular. S1 and S2 normal. No appreciable rubs, murmurs or gallops. ABDOMEN: Soft, nontender, and nondistended. There is no rebound, voluntary guarding, or rigidity. : Deferred. No Luciano. EXTREMITIES: Non-edematous and not cyanotic. No clubbing. Good capillary refill. SKIN: No skin breakdown. Vital Sign (Last 24 Hours) 07/04/24 07/05/24 07/05/24 20:00 11:31 11:32 Temp 97.9 Pulse 71 Resp 18 B/P (MAP) 155/64 Pulse Ox 97 O2 Delivery Room Air O2 Flow Rate 0 FiO2 21 Intake & Output (last 24hrs) 07/04/24 07/04/24 07/05/24 14:59 22:59 06:59 Output Total 300 ml Balance -300 ml LABS: Laboratory: Test 07/05/24 12:05 07/05/24 06:48 07/04/24 15:55 07/04/24 05:17 Range/Units Whole Blood Glucose 100 70-110 MG/DL White Blood Count 9.9 4.8-10.8 K/uL Red Blood Count 3.43 L 4.00-5.50 MIL/uL Hemoglobin 10.1 L 12.0-16.0 g/dL Hematocrit 31.0 L 36-48 % Mean Corpuscular Volume 90.4 79-99 fL Mean Corpuscular Hemoglobin 29.4 27.0-33.0 pg Mean Corpuscular Hemoglobin Concent 32.6 32.0-36.0 g/dL Red Cell Distribution Width 13.1 11.0-15.5 % Platelet Count 240 130-400 K/uL Mean Platelet Volume 9.3 7.5-10.5 fL Immature Granulocyte % (Auto) 1.1 H 0-1 % Neutrophils (%) (Auto) 65.0 40.0-77.0 % Lymphocytes (%) (Auto) 26.1 21.0-51.0 % Monocytes (%) (Auto) 7.5 3.0-13.0 % Eosinophils (%) (Auto) 0.1 0.0-8.0 % Basophils (%) (Auto) 0.2 0.0-5.0 % Neutrophils # (Auto) 6.5 1.8-7.7 K/uL Lymphocytes # (Auto) 2.6 1.0-4.8 K/uL Monocytes # (Auto) 0.7 0.1-1.0 K/uL Eosinophils # (Auto) 0.01 0.00-0.70 K/uL Basophils # (Auto) 0.02 0.00-0.20 K/uL Absolute Immature Granulocyte (auto 0.11 0-1 K/uL Nucleated Red Blood Cells 0.0 0.0-0.19 % Sodium Level 134 L 136-145 mmol/L Potassium Level 4.0 3.5-5.1 mmol/L Chloride Level 101 101-111 mmol/L Carbon Dioxide Level 27 21-32 mmol/L Blood Urea Nitrogen 11 7-18 mg/dL Creatinine 1.0 0.5-1.0 mg/dL Glomerular Filtration Rate Calc 54 >90 mL/min Random Glucose 95 70-105 mg/dL Hemoglobin A1c 5.9 4.0-6.0 % Estimated Average Glucose (eAG) 123 70-126 mg/dL Lactic Acid Level 1.2 0.8-2.5 mmol/L Total Calcium 9.4 8.5-10.1 mg/dL Magnesium Level 1.70 L 1.80-2.40 mg/dL Total Bilirubin 0.4 0.2-1.0 mg/dL Direct Bilirubin 0.2 0.0-0.3 mg/dL Aspartate Amino Transf (AST/SGOT) 59 H 10-37 U/L Alanine Aminotransferase (ALT/SGPT) 159 H 12-78 U/L Alkaline Phosphatase 144 H 50-136 U/L Ammonia 20 11-32 umol/L Total Creatine Kinase 23 # 21-232 U/L B-Type Natriuretic Peptide 251 H 0-100 pg/mL Total Protein 6.4 6.0-8.3 g/dL Albumin 2.5 L 3.5-5.0 g/dL Procalcitonin < 0.05 L 0.05-0.5 ng/mL Influenza Type A Antigen Negative For Type A NEGATIVE Influenza Type B Antigen Negative For Type B NEGATIVE Urine Color LIGHT-YELLOW YELLOW Urine Appearance CLEAR CLEAR Urine pH 6.0 5.0-8.0 Urine Specific Sharon 1.008 1.001-1.031 Urine Protein NEGATIVE NEGATIVE mg/dL Urine Glucose (UA) NEGATIVE NEGATIVE mg/dL Urine Ketones NEGATIVE NEGATIVE mg/dL Urine Occult Blood +- (TRACE) H NEGATIVE Urine Nitrate NEGATIVE NEGATIVE Urine Bilirubin NEGATIVE NEGATIVE mg/dL Urine Urobilinogen 0.2 0.2-1.0 mg/dL Urine Leukocyte Esterase NEGATIVE NEGATIVE Fredi/uL Urine RBC 6-10 H 0-1 /HPF Urine WBC 0-1 0-1 /HPF Urine Bacteria None None Seen /HPF Current Medications Medications (Trade) Dose Ordered Sig/Kayla Route PRN Reason Start Time Stop Time Status Last Admin Dose Admin Acetaminophen (TYLenol 325MG TAB) 650 mg Q4H PRN PO MILD PAIN (1-3) 07/04/24 09:30 08/03/24 09:29 07/05/24 01:35 650 MG Acetaminophen (TYLenol 325MG TAB) 650 mg Q6H PRN PO MILD PAIN (1-3) 07/04/24 09:30 07/04/24 09:34 DC Acetaminophen (TYLenol 325MG TAB) 650 mg Q6H PRN PO TEMPERATURE GREATER THAN 101.5 07/04/24 09:30 08/03/24 09:29 Al Hydroxide/Mg Hydroxide (MAALox PLUS 30ML) 30 ml Q6H PRN PO INDIGESTION 07/04/24 09:30 08/03/24 09:29 Ceftriaxone Sodium 2 gm/ Sodium Chloride 100 ml @ 200 mls/hr Q24H IV 07/04/24 09:30 07/04/24 09:35 DC Ceftriaxone Sodium (Rocephin 2gm Inj) 2 gm Q24H IVPB 07/04/24 10:00 07/14/24 09:59 07/05/24 09:05 2 GM Dextrose (D50w) 50 ml AD PRN IV HYPOGLYCEMIA PROTOCOL 07/04/24 09:30 08/03/24 09:29 Diphenhydramine HCl (BENAdryl INJ) 25 mg Q6H PRN IV SEVERE ITCHING/RASH 07/04/24 09:30 08/03/24 09:29 Famotidine (Pepcid 20mg Vial) 20 mg BID PRN IV NAUSEA/VOMITING 07/04/24 09:30 07/04/24 09:35 DC Famotidine (Pepcid 20mg Vial) 20 mg QODAY IV 07/05/24 09:00 08/04/24 08:59 07/05/24 09:05 20 MG Glucagon (Glucagon 1mg Kit) 1 mg AD PRN IM HYPOGLYCEMIA PROTOCOL 07/04/24 09:30 08/03/24 09:29 Guaifenesin/ Dextromethorphan (RobiTUSSin DM 200/20MG 10ML) 10 ml Q4H PRN PO COUGH 07/04/24 09:30 08/03/24 09:29 07/05/24 01:33 10 ML Heparin Sodium (Porcine) (HEParin 5,000 UNIT VIAL) 5,000 unit BID SQ 07/04/24 21:00 08/03/24 20:59 07/05/24 09:14 5,000 UNIT Hydralazine HCl (APRESOLine 20MG INJ) 10 mg Q6H PRN IV For:SBP above 160;DBP above 90 07/04/24 09:30 08/03/24 09:29 Insulin Human Regular (humuLIN R 100 UNIT/ML 3ML) INSULIN SLIDING SCAL... ACHS SQ 07/04/24 11:30 08/03/24 11:29 Ketorolac Tromethamine (toRADol) 15 mg Q8H PRN IV MODERATE PAIN (4-6) 07/04/24 09:30 07/04/24 09:37 DC Lactated Ringer's 1,000 ml @ 100 mls/hr Q10H IV 07/04/24 09:30 08/03/24 09:29 07/04/24 21:33 100 MLS/HR Lactated Ringer's (Lactated Ringers 1000ml) 1,000 ml BOLUS STAT IV 07/04/24 01:31 07/04/24 01:33 DC 07/04/24 03:51 1,000 ML Lactulose (Constulose 20gm/ 30ml Udcup) 20 gm BID PRN PO CONSTIPATION 07/04/24 09:30 08/03/24 09:29 Magnesium Sulfate 50 ml @ 0 mls/hr PROTOCOL IV 07/05/24 10:00 07/05/24 09:54 DC Magnesium Sulfate 50 ml @ 0 mls/hr PROTOCOL PRN IV other 07/04/24 09:30 08/03/24 09:29 Morphine Sulfate (morPHINE 2MG SYG) 1 mg Q4H PRN IVP MODERATE PAIN (4-6) 07/04/24 09:30 07/11/24 09:29 Nitroglycerin (Nitrostat) 0.4 mg PROTOCOL PRN SL CHEST PAIN 07/04/24 09:30 08/03/24 09:29 Ondansetron HCl (zoFRAN 4MG INJ) 4 mg Q6H PRN IV NAUSEA/VOMITING 07/04/24 09:30 08/03/24 09:29 Oxycodone/ Acetaminophen (perCOCET) 1 tab Q6H PRN PO SEVERE PAIN (7-10) 07/04/24 09:30 07/11/24 09:29 Potassium Chloride 100 ml @ 100 mls/hr AD PRN IV POTASSIUM PROTOCOL 07/04/24 09:30 08/03/24 09:29 Potassium Chloride (K-Dur 10meq Sr Tab) 10 meq AD PRN PO POTASSIUM PROTOCOL 07/05/24 08:30 08/03/24 09:29 Potassium Chloride (K-Dur/Klor-Con 20meq) 10 meq AD PRN PO POTASSIUM PROTOCOL 07/04/24 09:30 07/05/24 08:12 DC Potassium Chloride (KCl 10% Elixir 20meq/15ml) 10 meq AD PRN PO POTASSIUM PROTOCOL 07/04/24 09:30 08/03/24 09:29 Zolpidem Tartrate (AmbIEN) 5 mg HS PRN PO INSOMNIA 07/04/24 09:30 08/03/24 09:29 DIAGNOSTICS / RADIOLOGY: [ ] ASSESSMENT: [Generalized body weakness POA Lightheadedness POA Electrolyte imbalance hyponatremia Na 127 POA Acute dehydration POA Acute on chronic diastolic congestive heart failure EF more than 55% per 2D echo 09/13/2023 uncontrolled diabetes mellitus type with hyperglycemia POA Leukocytosis WBC 13.9 POA Vitamin-D deficiency POA Gastritis POA Early dementia POA Hyperlipidemia POA Depression POA Anxiety POA History of left eye tube insertion of the right eye ] PLAN: [ Admit to: Medical-surgical Consults: None Antibiotics: Rocephin2 g daily Tests: 2D echo, orthostatic vital signs NEURO: Minimize central acting medications as possible. Fall Precautions. Well lighted room through the day and minimize interruptions through the night to prevent acute delirium. PULMONARY: Chest x-ray negative Influenza A negative Influenza B negative COVID negative Supplemental 02 as needed BiPAP as necessary, for respiratory distress Titrate Fio2 to keep Spo2 > or = 90% DuoNeb�s and CPT as needed IS hourly while awake for pulmonary hygiene Out of bed to chair as tolerated Maintain aspiration precautions at all times CARDIOVASCULAR: 2D echo pending Follow hemodynamics. Vital signs per facility protocol GI & NUTRITION: Continue nutritional support Aspirations precautions Prokinetic agents and laxatives as needed KIDNEYS & ELECTROLYTES: Strict monitoring of intake and output Daily weights Avoid nephrotoxic agents Monitor electrolytes and replace as needed Goal urine output of 30mL/hr or 0.5mL/kg/hr Medications to be dosed according to renal function. Avoid contrast if possible ENDOCRINE: Maintain blood glucose between 100-180 at all times. Insulin sliding scale for blood glucose management Hypoglycemia and hyperglycemia protocol in place INFECTIOUS DISEASE: Trend temperature, WBC and procalcitonin level Follow cultures, deescalate antibiotics as soon as possible. Panculture if new onset fever HEMATOLOGY & COAGULATION: Monitor H&H. Keep Hgb > 7 Transfuse 1 unit of PRBC for Hgb < 7 Transfuse 1 pack of platelets of platelets < 20, 000 Watch for any signs and symptoms of bleeding SKIN: Pressure ulcer prevention per facility protocol Specialty mattress as needed Treatment plan discussed with patient and family at the bedside Medications to be reconciled once obtained by patient and/or family and available to be reconciled in computer p.r.n. medication for pain nausea and vomiting Questions were answered We will continue to monitor the patient closely Scrum Coach for disposition Rehab: PT/OT GI: PPI DVT: SCD's Code Status: Full Resuscitation Disposition: TBD Prognosis: Guarded] ADVANCED CARE PLANNING 1. Which of the following were discussed? Hospice Care - Yes / No Therapeutic options - Yes / No Advance Directives - Yes / No Other discussions - 2. Discussed with who? Patient 3. Voluntary nature of this service was explained to the patient? Yes / No 4. Amount of time spent - ___35 minutes ____ 5. Reviewed by Physician? (if this service was performed by NPP) Yes / No ATTESTATION BY PHYSICIAN I have seen and examined the patient. I reviewed the documentation, medical decision making, and treatment plan as noted by the mid-level provider above. I agree with the findings and plan of care. SUSAN LEARY MD, KATARZYNA B [facility] [employer] ATTENDANT July 05, 2024 12:20
--- NOTE | 2024-07-05 12:25 | PN ---
[facility] PROGRESS NOTE Date of Service: July 05, 2024 Time of Service: 12:[address] Leary SUBJECTIVE: [07/04/24 Patient is 89 years old female with a past medical history of hypertension, left eye recent surgery with the tube placement due to problems with tears?, depression, anxiety, hyperlipidemia, CKD, vitamin-D deficiency, gastritis, early dementia, who came to emergency department with a complaint of feeling of fainting and being lightheaded for the past about2 to 3 days. Family member at the bedside/daughter stated that patient has been walking the house with a feeling of fainting. Patient was also complaining of cough for the past about a month only at night. Patient denies any fever, chills.] Most recent vital signs temperature 98.6� pulse 67 respiration 18 blood pressure 157/67. Patient is on room air satting 99%. WBC 13.9 hemoglobin 10.7 hematocrit 32.5 Platelets [id number] potassium 3.6 CO2 26 BUN 19 creatinine 1.0 GFR 19 random glucose 113. Total calcium 9.1 . Influenza A negative. Infl uenza B negative. Urinalysis negative for leukocytosis or nitrates. Chest x- ray showed clear lungs. Echocardiogram 09/13/2023 showed EF more than 55% stage I diastolic dysfunction. No pericardial effusion. Patient will be admitted under hospitalist care for further evaluation/recommendations. 07/05/24 patient was seen by nurse practitioner physician during rounding in room 319. Influenza came back negative. Urine came back mixed romana contamination. Patient continues to be on Rocephin2 g daily WBC today went down 9.9. Chest x- ray showed clear lungs. We are still pending 2D echo. Orthostatic vital signs were performed and they are positive. Some blood pressure 155/64. We will consult Cardiology in the meantime. In the meantime we will also wait for PT evaluation. We will continue to monitor patient in the meantime. A.m. labs. REVIEW OF SYSTEMS CONSTITUTIONAL: Denies fevers, chills, or night sweats. No unintentional weight loss reported. NEUROLOGICAL: Denies headache, amaurosis fugax, motor weakness, sensory deficit, vertigo/spinning sensation, gait abnormalities, or tremors. Lightheadedness generalized body weakness ENT: No hearing loss, otalgia, otorrhea, rhinitis, rhinorrhea, hoarseness, or sore throat. CARDIOVASCULAR: Denies any exertional angina, dyspnea on exertion, orthopnea, paroxysmal nocturnal dyspnea, palpitations, life-threatening arrhythmias, claudication. PULMONARY: Denies any shortness of breath, cough, phlegm/sputum, hemoptysis, pleuritic chest pain. SLEEP: Denies morning headaches, daytime somnolence or napping. Denies difficulty falling asleep, staying asleep, waking from sleep. Denies knowledge of snoring. GASTROINTESTINAL: Denies any type of dysphagia to either liquids or solids. Denies nausea, vomiting, pyrosis, early satiety, abdominal pain, diarrhea, constipation, or changes in stool consistency or caliber. Denies coffee-ground emesis, hematemesis, hematochezia, or melanotic stools. GENITOURINARY: Denies frequency, urgency, nocturia, hematuria or incontinence (Storage/Irritative symptoms.) Low urinary stream, straining to void, urinary intermittency or hesitancy, splitting of the voiding stream, terminal dribbling. ENDOCRINOLOGIC: Denies polyuria, polydipsia, polyphagia or heat/cold intolerances. HEMATOLOGIC: Denies thrombophilia/previous clots, or coagulopathy/bleeding disorders. ONCOLOGIC: Denies personal history of malignancy. DERMATOLOGIC: Denies rashes or pruritus. PSYCHIATRIC: Denies any suicidal or homicidal ideation. Denies hallucinations. PHYSICAL EXAM GENERAL APPEARANCE: The patient is awake, alert, and oriented, in no acute cardiopulmonary distress. NEUROLOGICAL: Cranial nerves II-XII grossly intact. Motor is 5/5 in bilateral upper and lower extremities proximal to distal. No sensory deficits. HEENT: Face is symmetric. Pupils are equal and reactive. Extraocular movements are intact. NECK: Supple. No JVD. No thyromegaly. No submental, submandibular, pre- /postauricular, occipital or supraclavicular lymphadenopathy. CHEST: Normal chest expansion. No Telemetry. LUNGS: Absence of any rales, rhonchi or any wheezing. CARDIOVASCULAR: Regular. S1 and S2 normal. No appreciable rubs, murmurs or gallops. ABDOMEN: Soft, nontender, and nondistended. There is no rebound, voluntary guarding, or rigidity. : Deferred. No Luciano. EXTREMITIES: Non-edematous and not cyanotic. No clubbing. Good capillary refill. SKIN: No skin breakdown. Vital Signs (last 8hr) Date Time Temp Pulse Resp B/P (MAP) Pulse Ox O2 Delivery O2 Flow Rate FiO2 07/05/24 11:32 71 18 155/64 97 Room Air 21 07/05/24 11:31 69 18 133/50 97 Room Air 21 07/05/24 11:31 97.9 59 18 128/66 99 Room Air 21 07/05/24 08:00 98.8 67 18 143/61 98 Room Air 21 LABS: Laboratory: Test 07/05/24 12:05 07/05/24 06:48 07/04/24 15:55 07/04/24 05:17 Range/Units Whole Blood Glucose 100 70-110 MG/DL White Blood Count 9.9 4.8-10.8 K/uL Red Blood Count 3.43 L 4.00-5.50 MIL/uL Hemoglobin 10.1 L 12.0-16.0 g/dL Hematocrit 31.0 L 36-48 % Mean Corpuscular Volume 90.4 79-99 fL Mean Corpuscular Hemoglobin 29.4 27.0-33.0 pg Mean Corpuscular Hemoglobin Concent 32.6 32.0-36.0 g/dL Red Cell Distribution Width 13.1 11.0-15.5 % Platelet Count 240 130-400 K/uL Mean Platelet Volume 9.3 7.5-10.5 fL Immature Granulocyte % (Auto) 1.1 H 0-1 % Neutrophils (%) (Auto) 65.0 40.0-77.0 % Lymphocytes (%) (Auto) 26.1 21.0-51.0 % Monocytes (%) (Auto) 7.5 3.0-13.0 % Eosinophils (%) (Auto) 0.1 0.0-8.0 % Basophils (%) (Auto) 0.2 0.0-5.0 % Neutrophils # (Auto) 6.5 1.8-7.7 K/uL Lymphocytes # (Auto) 2.6 1.0-4.8 K/uL Monocytes # (Auto) 0.7 0.1-1.0 K/uL Eosinophils # (Auto) 0.01 0.00-0.70 K/uL Basophils # (Auto) 0.02 0.00-0.20 K/uL Absolute Immature Granulocyte (auto 0.11 0-1 K/uL Nucleated Red Blood Cells 0.0 0.0-0.19 % Sodium Level 134 L 136-145 mmol/L Potassium Level 4.0 3.5-5.1 mmol/L Chloride Level 101 101-111 mmol/L Carbon Dioxide Level 27 21-32 mmol/L Blood Urea Nitrogen 11 7-18 mg/dL Creatinine 1.0 0.5-1.0 mg/dL Glomerular Filtration Rate Calc 54 >90 mL/min Random Glucose 95 70-105 mg/dL Hemoglobin A1c 5.9 4.0-6.0 % Estimated Average Glucose (eAG) 123 70-126 mg/dL Lactic Acid Level 1.2 0.8-2.5 mmol/L Total Calcium 9.4 8.5-10.1 mg/dL Magnesium Level 1.70 L 1.80-2.40 mg/dL Total Bilirubin 0.4 0.2-1.0 mg/dL Direct Bilirubin 0.2 0.0-0.3 mg/dL Aspartate Amino Transf (AST/SGOT) 59 H 10-37 U/L Alanine Aminotransferase (ALT/SGPT) 159 H 12-78 U/L Alkaline Phosphatase 144 H 50-136 U/L Ammonia 20 11-32 umol/L Total Creatine Kinase 23 # 21-232 U/L B-Type Natriuretic Peptide 251 H 0-100 pg/mL Total Protein 6.4 6.0-8.3 g/dL Albumin 2.5 L 3.5-5.0 g/dL Procalcitonin < 0.05 L 0.05-0.5 ng/mL Influenza Type A Antigen Negative For Type A NEGATIVE Influenza Type B Antigen Negative For Type B NEGATIVE Urine Color LIGHT-YELLOW YELLOW Urine Appearance CLEAR CLEAR Urine pH 6.0 5.0-8.0 Urine Specific [place] 1.008 1.001-1.031 Urine Protein NEGATIVE NEGATIVE mg/dL Urine Glucose (UA) NEGATIVE NEGATIVE mg/dL Urine Ketones NEGATIVE NEGATIVE mg/dL Urine Occult Blood +- (TRACE) H NEGATIVE Urine Nitrate NEGATIVE NEGATIVE Urine Bilirubin NEGATIVE NEGATIVE mg/dL Urine Urobilinogen 0.2 0.2-1.0 mg/dL Urine Leukocyte Esterase NEGATIVE NEGATIVE Fredi/uL Urine RBC 6-10 H 0-1 /HPF Urine WBC 0-1 0-1 /HPF Urine Bacteria None None Seen /HPF Current Medications Medications (Trade) Dose Ordered Sig/Kayla Route PRN Reason Start Time Stop Time Status Last Admin Dose Admin Acetaminophen (TYLenol 325MG TAB) 650 mg Q4H PRN PO MILD PAIN (1-3) 07/04/24 09:30 08/03/24 09:29 07/05/24 01:35 650 MG Acetaminophen (TYLenol 325MG TAB) 650 mg Q6H PRN PO MILD PAIN (1-3) 07/04/24 09:30 07/04/24 09:34 DC Acetaminophen (TYLenol 325MG TAB) 650 mg Q6H PRN PO TEMPERATURE GREATER THAN 101.5 07/04/24 09:30 08/03/24 09:29 Al Hydroxide/Mg Hydroxide (MAALox PLUS 30ML) 30 ml Q6H PRN PO INDIGESTION 07/04/24 09:30 08/03/24 09:29 Ceftriaxone Sodium 2 gm/ Sodium Chloride 100 ml @ 200 mls/hr Q24H IV 07/04/24 09:30 07/04/24 09:35 DC Ceftriaxone Sodium (Rocephin 2gm Inj) 2 gm Q24H IVPB 07/04/24 10:00 07/14/24 09:59 07/05/24 09:05 2 GM Dextrose (D50w) 50 ml AD PRN IV HYPOGLYCEMIA PROTOCOL 07/04/24 09:30 08/03/24 09:29 Diphenhydramine HCl (BENAdryl INJ) 25 mg Q6H PRN IV SEVERE ITCHING/RASH 07/04/24 09:30 08/03/24 09:29 Famotidine (Pepcid 20mg Vial) 20 mg BID PRN IV NAUSEA/VOMITING 07/04/24 09:30 07/04/24 09:35 DC Famotidine (Pepcid 20mg Vial) 20 mg QODAY IV 07/05/24 09:00 08/04/24 08:59 07/05/24 09:05 20 MG Glucagon (Glucagon 1mg Kit) 1 mg AD PRN IM HYPOGLYCEMIA PROTOCOL 07/04/24 09:30 08/03/24 09:29 Guaifenesin/ Dextromethorphan (RobiTUSSin DM 200/20MG 10ML) 10 ml Q4H PRN PO COUGH 07/04/24 09:30 08/03/24 09:29 07/05/24 01:33 10 ML Heparin Sodium (Porcine) (HEParin 5,000 UNIT VIAL) 5,000 unit BID SQ 07/04/24 21:00 08/03/24 20:59 07/05/24 09:14 5,000 UNIT Hydralazine HCl (APRESOLine 20MG INJ) 10 mg Q6H PRN IV For:SBP above 160;DBP above 90 07/04/24 09:30 08/03/24 09:29 Insulin Human Regular (humuLIN R 100 UNIT/ML 3ML) INSULIN SLIDING SCAL... ACHS SQ 07/04/24 11:30 08/03/24 11:29 Ketorolac Tromethamine (toRADol) 15 mg Q8H PRN IV MODERATE PAIN (4-6) 07/04/24 09:30 07/04/24 09:37 DC Lactated Ringer's 1,000 ml @ 100 mls/hr Q10H IV 07/04/24 09:30 08/03/24 09:29 07/04/24 21:33 100 MLS/HR Lactated Ringer's (Lactated Ringers 1000ml) 1,000 ml BOLUS STAT IV 07/04/24 01:31 07/04/24 01:33 DC 07/04/24 03:51 1,000 ML Lactulose (Constulose 20gm/ 30ml Udcup) 20 gm BID PRN PO CONSTIPATION 07/04/24 09:30 08/03/24 09:29 Magnesium Sulfate 50 ml @ 0 mls/hr PROTOCOL IV 07/05/24 10:00 07/05/24 09:54 DC Magnesium Sulfate 50 ml @ 0 mls/hr PROTOCOL PRN IV other 07/04/24 09:30 08/03/24 09:29 Morphine Sulfate (morPHINE 2MG SYG) 1 mg Q4H PRN IVP MODERATE PAIN (4-6) 07/04/24 09:30 07/11/24 09:29 Nitroglycerin (Nitrostat) 0.4 mg PROTOCOL PRN SL CHEST PAIN 07/04/24 09:30 08/03/24 09:29 Ondansetron HCl (zoFRAN 4MG INJ) 4 mg Q6H PRN IV NAUSEA/VOMITING 07/04/24 09:30 08/03/24 09:29 Oxycodone/ Acetaminophen (perCOCET) 1 tab Q6H PRN PO SEVERE PAIN (7-10) 07/04/24 09:30 07/11/24 09:29 Potassium Chloride 100 ml @ 100 mls/hr AD PRN IV POTASSIUM PROTOCOL 07/04/24 09:30 08/03/24 09:29 Potassium Chloride (K-Dur 10meq Sr Tab) 10 meq AD PRN PO POTASSIUM PROTOCOL 07/05/24 08:30 08/03/24 09:29 Potassium Chloride (K-Dur/Klor-Con 20meq) 10 meq AD PRN PO POTASSIUM PROTOCOL 07/04/24 09:30 07/05/24 08:12 DC Potassium Chloride (KCl 10% Elixir 20meq/15ml) 10 meq AD PRN PO POTASSIUM PROTOCOL 07/04/24 09:30 08/03/24 09:29 Zolpidem Tartrate (AmbIEN) 5 mg HS PRN PO INSOMNIA 07/04/24 09:30 08/03/24 09:29 DIAGNOSTICS / RADIOLOGY: [ ] ASSESSMENT: [Generalized body weakness POA Lightheadedness POA orthostatic hypotension positive POA Electrolyte imbalance hyponatremia Na 127 POA Acute dehydration POA Acute on chronic diastolic congestive heart failure EF more than 55% per 2D echo 09/13/2023 uncontrolled diabetes mellitus type with hyperglycemia POA Leukocytosis WBC 13.9 POA Vitamin-D deficiency POA Gastritis POA Early dementia POA Hyperlipidemia POA Depression POA Anxiety POA History of left eye tube insertion of the right eye ] PLAN: [ Admit to: Medical-surgical Consults: Cardiology Antibiotics: Rocephin2 g daily Tests: 2D echo, pending NEURO: Minimize central acting medications as possible. Fall Precautions. Well lighted room through the day and minimize interruptions through the night to prevent acute delirium. PULMONARY: Chest x-ray negative Influenza A negative Influenza B negative COVID negative Supplemental 02 as needed BiPAP as necessary, for respiratory distress Titrate Fio2 to keep Spo2 > or = 90% DuoNeb�s and CPT as needed IS hourly while awake for pulmonary hygiene Out of bed to chair as tolerated Maintain aspiration precautions at all times CARDIOVASCULAR: 2D echo pending Orthostatic vital signs positive Consult cardiology Follow hemodynamics. Vital signs per facility protocol GI & NUTRITION: Continue nutritional support Aspirations precautions Prokinetic agents and laxatives as needed KIDNEYS & ELECTROLYTES: Strict monitoring of intake and output Daily weights Avoid nephrotoxic agents Monitor electrolytes and replace as needed Goal urine output of 30mL/hr or 0.5mL/kg/hr Medications to be dosed according to renal function. Avoid contrast if possible ENDOCRINE: Maintain blood glucose between 100-180 at all times. Insulin sliding scale for blood glucose management Hypoglycemia and hyperglycemia protocol in place INFECTIOUS DISEASE: Trend temperature, WBC and procalcitonin level Follow cultures, deescalate antibiotics as soon as possible. Panculture if new onset fever HEMATOLOGY & COAGULATION: Monitor H&H. Keep Hgb > 7 Transfuse 1 unit of PRBC for Hgb < 7 Transfuse 1 pack of platelets of platelets < 20, 000 Watch for any signs and symptoms of bleeding SKIN: Pressure ulcer prevention per facility protocol Specialty mattress as needed Treatment plan discussed with patient and family at the bedside Medications to be reconciled once obtained by patient and/or family and available to be reconciled in computer p.r.n. medication for pain nausea and vomiting Questions were answered We will continue to monitor the patient closely Botany Technician for disposition Rehab: PT/OT GI: PPI DVT: SCD's Code Status: Full Resuscitation Disposition: TBD Prognosis: Guarded] ATTESTATION BY PHYSICIAN I have seen and examined the patient. I reviewed the documentation, medical decision making, and treatment plan as noted by the mid-level provider above. I agree with the findings and plan of care. SUSAN LEARY MD, KATARZYNA B MOLD ENGRAVER July 05, 2024 12:25
--- NOTE | 2024-07-05 14:51 | CONS ---
[facility] CARDIOLOGY CONSULTATION REPORT Cardiology consultation note dictated for Evy Marie MD Primary lei maker: Raoul Forrester MD Date Patient Seen: July 05, 2024 Requesting Physician: Nancy Lowe APRN Reason for Consultation: Abnormal orthostatic vital signs History of Present Illness: This is an 89-year-old female with a past medical history of hypertension, dyslipidemia, simvastatin induced myalgia, hyperkalemia, vitamin-D deficiency, early dementia, ACS with nonspecific anterior and anterolateral ST-T wave changes s/p LHC on 11/21/2013 demonstrating takotsubo cardiomyopathy (the patient was informed of the of her brother 2 days prior to symptom), nonobstructive single-vessel CAD with 30% proximal and 30% distal RCA stenosis, 2D echo on 09/13/2023 with an EF greater than 55%, stage I diastolic dysfunction, trivial aortic stenosis peak AV gradient of 9 mmHg, mean AV gradi ent of 5 mmHg, and left eye surgery in 06/2024 who presented to the ED with complaints of general body weakness and lightheadedness. Cardiology has been consulted for abnormal orthostatic vital signs. The patient endorsed one episode of feeling like she was going to faint and GBW after standing up and walking around her house. She denied any visual changes or accompanying symptoms. Orthostatic vital signs: Supine 123/66mmHg, hr 61 Sitting 133/50mmHg, hr 69 Standing 155/64mmHg, hr 71 Supine 161/65mmHg, hr 71 Sitting 170/69mmHg, hr 73 Standing 181/73mmHg, hr 80 The patient was asymptomatic to increase in bp. Past Medical History: As per HPI and summarized below Past Surgical History: Right hip surgery Family History: Noncontributory Social History: The patient lives with family Habits: The patient denies alcohol, tobacco, or illicit drug use. Home Meds: Neomycin/polymyxin-dexamethasone eye drops OS b.i.d. Amlodipine 5 mg daily Carvedilol 6.25 mg b.i.d. Olmesartan 20 mg daily Atorvastatin 40 mg nightly Oxybutynin 5 mg q.h.s. Cetirizine 10 mg daily Flonase 50 mcg/actuation spray per nasal daily Memantine 5 mg q.h.s. Sertraline 50 mg daily Famotidine 20 mg b.i.d. Sucralfate1 g t.i.d. Current Meds: Current Medications Medications Dose Ordered Sig/Kayla Start Time Stop Time Status Last Admin Insulin Human Regular INSULIN SLIDING SCAL... ACHS 07/04/24 11:30 08/03/24 11:29 Dextrose 50 ml AD PRN 07/04/24 09:30 08/03/24 09:29 Glucagon 1 mg AD PRN 07/04/24 09:30 08/03/24 09:29 Potassium Chloride 100 ml @ 100 mls/hr AD PRN 07/04/24 09:30 08/03/24 09:29 Potassium Chloride 10 meq AD PRN 07/04/24 09:30 08/03/24 09:29 Magnesium Sulfate 50 ml @ 0 mls/hr PROTOCOL PRN 07/04/24 09:30 08/03/24 09:29 Diphenhydramine HCl 25 mg Q6H PRN 07/04/24 09:30 08/03/24 09:29 Acetaminophen 650 mg Q6H PRN 07/04/24 09:30 08/03/24 09:29 Acetaminophen 650 mg Q4H PRN 07/04/24 09:30 08/03/24 09:29 07/05/24 01:35 Ondansetron HCl 4 mg Q6H PRN 07/04/24 09:30 08/03/24 09:29 Zolpidem Tartrate 5 mg HS PRN 07/04/24 09:30 08/03/24 09:29 Al Hydroxide/Mg Hydroxide 30 ml Q6H PRN 07/04/24 09:30 08/03/24 09:29 Lactulose 20 gm BID PRN 07/04/24 09:30 08/03/24 09:29 Nitroglycerin 0.4 mg PROTOCOL PRN 07/04/24 09:30 08/03/24 09:29 Guaifenesin/ Dextromethorphan 10 ml Q4H PRN 07/04/24 09:30 08/03/24 09:29 07/05/24 01:33 Heparin Sodium (Porcine) 5,000 unit BID 07/04/24 21:00 08/03/24 20:59 07/05/24 09:14 Oxycodone/ Acetaminophen 1 tab Q6H PRN 07/04/24 09:30 07/11/24 09:29 Morphine Sulfate 1 mg Q4H PRN 07/04/24 09:30 07/11/24 09:29 Hydralazine HCl 10 mg Q6H PRN 07/04/24 09:30 08/03/24 09:29 Lactated Ringer's 1,000 ml @ 100 mls/hr Q10H 07/04/24 09:30 08/03/24 09:29 07/04/24 21:33 Famotidine 20 mg QODAY 07/05/24 09:00 08/04/24 08:59 07/05/24 09:05 Ceftriaxone Sodium 2 gm Q24H 07/04/24 10:00 07/14/24 09:59 07/05/24 09:05 Potassium Chloride 10 meq AD PRN 07/05/24 08:30 08/03/24 09:29 Review of Systems: CONST: [No fever, fatigue, or weight changes.] EYES: [No recent vision problems.] ENT: [No congestion, ear pain, or sore throat.] C/V: [No chest pain, palpitations, or edema.] RESP: [No cough, congestion, wheezing or shortness of breath.] GI: [No abdominal pain, nausea, vomiting, constipation, or diarrhea.] : [No incontinence or dysuria.] SKIN: [No rash.] NEURO: [No headache, focal numbness or weakness, dizziness, or seizures.] PSYCH: [No depression or anxiety.] HEME: [No abnormal bruising or bleeding.] LYMPH: [No swollen glands.] Physical Examination: GENERAL: [No acute distress.] HEAD: [Normal with no signs of head trauma.] EYES: [PERRLA, EOMI, conjunctiva and sclera normal.] ENT: [Hearing grossly intact, normal oropharynx.] NECK: [Supple without JVD. There is no tenderness, lymphadenopathy, or masses. No thyromegaly. Normal carotid upstrokes without bruits.] LUNGS: [Clear breath sounds bilaterally. No wheezes, or rhonchi.] HEART: [Normal rate and rhythm. Normal S1 and S2 without mumurs, gallop or rub.] VASC: [Peripheral pulses +2 bilaterally.] ABD: [Bowel sounds normal, soft, nontender, no masses, no organomegaly. No audible bruits.] : [Not examined] LYMPH: [No lymphadenopathy noted.] EXT: [No clubbing, cyanosis or edema.] SKIN: [No rashes or lesions noted.] NEURO: [Awake, alert, and oriented x3. No focal sensory or strength deficits noted.] Vital Signs (last 8hr) Date Time Temp Pulse Resp B/P (MAP) Pulse Ox O2 Delivery O2 Flow Rate FiO2 07/05/24 11:32 71 18 155/64 97 Room Air 21 07/05/24 11:31 69 18 133/50 97 Room Air 21 07/05/24 11:31 97.9 59 18 128/66 99 Room Air 21 07/05/24 08:00 98.8 67 18 143/61 98 Room Air 21 Laboratory: Hematology Labs: Test 07/05/24 06:48 Range/Units White Blood Count 9.9 4.8-10.8 K/uL Red Blood Count 3.43 L 4.00-5.50 MIL/uL Hemoglobin 10.1 L 12.0-16.0 g/dL Hematocrit 31.0 L 36-48 % Mean Corpuscular Volume 90.4 79-99 fL Mean Corpuscular Hemoglobin 29.4 27.0-33.0 pg Mean Corpuscular Hemoglobin Concent 32.6 32.0-36.0 g/dL Red Cell Distribution Width 13.1 11.0-15.5 % Platelet Count 240 130-400 K/uL Mean Platelet Volume 9.3 7.5-10.5 fL Immature Granulocyte % (Auto) 1.1 H 0-1 % Neutrophils (%) (Auto) 65.0 40.0-77.0 % Lymphocytes (%) (Auto) 26.1 21.0-51.0 % Monocytes (%) (Auto) 7.5 3.0-13.0 % Eosinophils (%) (Auto) 0.1 0.0-8.0 % Basophils (%) (Auto) 0.2 0.0-5.0 % Neutrophils # (Auto) 6.5 1.8-7.7 K/uL Lymphocytes # (Auto) 2.6 1.0-4.8 K/uL Monocytes # (Auto) 0.7 0.1-1.0 K/uL Eosinophils # (Auto) 0.01 0.00-0.70 K/uL Basophils # (Auto) 0.02 0.00-0.20 K/uL Absolute Immature Granulocyte (auto 0.11 0-1 K/uL Nucleated Red Blood Cells 0.0 0.0-0.19 % Chemistry Labs: Test 07/05/24 12:05 07/05/24 06:48 Range/Units Whole Blood Glucose 100 70-110 MG/DL Sodium Level 134 L 136-145 mmol/L Potassium Level 4.0 3.5-5.1 mmol/L Chloride Level 101 101-111 mmol/L Carbon Dioxide Level 27 21-32 mmol/L Blood Urea Nitrogen 11 7-18 mg/dL Creatinine 1.0 0.5-1.0 mg/dL Glomerular Filtration Rate Calc 54 >90 mL/min Random Glucose 95 70-105 mg/dL Hemoglobin A1c 5.9 4.0-6.0 % Estimated Average Glucose (eAG) 123 70-126 mg/dL Lactic Acid Level 1.2 0.8-2.5 mmol/L Total Calcium 9.4 8.5-10.1 mg/dL Magnesium Level 1.70 L 1.80-2.40 mg/dL Total Bilirubin 0.4 0.2-1.0 mg/dL Direct Bilirubin 0.2 0.0-0.3 mg/dL Aspartate Amino Transf (AST/SGOT) 59 H 10-37 U/L Alanine Aminotransferase (ALT/SGPT) 159 H 12-78 U/L Alkaline Phosphatase 144 H 50-136 U/L Ammonia 20 11-32 umol/L Total Creatine Kinase 23 # 21-232 U/L B-Type Natriuretic Peptide 251 H 0-100 pg/mL Total Protein 6.4 6.0-8.3 g/dL Albumin 2.5 L 3.5-5.0 g/dL Procalcitonin < 0.05 L 0.05-0.5 ng/mL Diagnostics / Radiology: Impression and Plan: Abnormal orthostatic vital signs Transaminitis Hypertension Dyslipidemia Early dementia History of hyperkalemia C on 11/21/2013 demonstrating takotsubo cardiomyopathy and nonobstructive CAD 2D echo on 09/13/2023 with an EF greater than 55% and stage I diastolic dysfunction Left eye surgery in 06/2024 Abnormal orthostatic vital signs Orthostatic vital signs: Supine 123/66mmHg, hr 61 Sitting 133/50mmHg, hr 69 Standing 155/64mmHg, hr 71 Supine 161/65mmHg, hr 71 Sitting 170/69mmHg, hr 73 Standing 181/73mmHg, hr 80 -Will resume home Olmesartan (Pharmacy interchange for Losartan 50mg daily) -Will hold off on resuming beta-kirstin Coreg 6.25mg bid for now -Echocardiogram and Carotid Doppler US are pending RODGER VITALE July 05, 2024 14:51 EVY MARIE MD July 05, 2024 18:20
[2024-07-05] MEDS: LoSARTan 50 MG TABLET PO SCH (17:12)
--- NOTE | 2024-07-05 18:13 | HMCSR ---
APPROVED REPORT EXAM: Two-dimensional and M-mode echocardiogram with Doppler and color Doppler. INDICATION ICD: Congestive heart failure 2D Dimensions RVDd4.7 cmLVEF(%)70.1 (>50%)LVED Vol(simp.)70.0 mL IVSd1.0 (0.7-1.1cm)FS(%)39 %LVES Vol(simp.)28.0 mL LVDd4.2 (3.8-5.6cm)LA (2D)4.0 (1.6-4.0cm)LVEF(%, simp.)60 % PWd0.8 (0.7-1.1cm)Ao Root(2D)3.1 (2.0-3.7cm)LA ESV INDEX (BP)37.71 mL/m2 IVSs1.2 cmLVOT diam2.0 (1.8-2.4cm) LVDs2.5 (2.5-4.0cm) PWs1.0 cm Deformation Strain Apical 4-19.4 % Apical 2-20.1 % Apical 3-21.9 % Global Strain-20.5 % M-Mode Dimensions EPSS0.5 cm LA (MM)4.0 (1.6-4.0cm) Ao Root(MM)2.9 (2.0-3.7cm) Aortic Valve AoV Vmax2.0 m/Shanelle Peak GR15.8 mmHgLVOT Vmax0.9 m/s AoV VTI0.4 mAo Mean GR8.3 mmHgLVOT VTI0.22 m DIYA (VMAX)1.71 cm2Al P1/2T285 msAVA (VTI) 1.7 cm2 Mitral Valve MV E Vdcs565.7 cm/sDECEL Arpv687 ms MV A Vmax89.5 cm/sP 1/2 T69 ms E/A ratio1.2MVA (PHT)3.2 cm2 TDI E/E' Zigjlp46.9E/E' Hpmbems01.1 Medial E' Peak V6.25 cm/sLateral E' Peak V6.58 cm/s Pulmonary Valve PV Vmax1.0 m/sPV VTI0.23 mPV Mean GR2.4 mmHg PV Peak GR4.1 mmHg Tricuspid Valve TR Vmax2.0 m/sRAP (EST) 8 iuDdQOSW89.3 mmHg TR Peak GR17.3 mmHg Left Ventricle The left ventricle is normal size. There is normal left ventricular wall thickness. LVEF is 60-65%. T he left ventricular diastolic function is normal. Right Ventricle The right ventricle is moderately dilated. The right ventricular systolic function is normal. Atria The left atrium is mildly dilated. The right atrium size is normal. Aortic Valve Aortic valve is trileaflet and opens well. Mild annular calcification noted. Mild aortic regurgitatio n by visualization, however, PHT suggests moderate AR. There is no aortic valvular stenosis. Mitral Valve The mitral valve is mildly thickened and opens well. There is mild mitral valve regurgitation noted. There is no mitral valve stenosis. Tricuspid Valve The tricuspid valve is normal in structure. There is trace of tricuspid valve regurgitation noted. Pulmonic Valve The pulmonary valve is normal in structure. There is trace of pulmonic valvular regurgitation. Great Vessels The aortic root is normal in size. IVC is not well visualized. Pericardium There is no pericardial effusion. Other Information Quality : Adequate Conclusion The left ventricle is normal size. LVEF is 60-65%. The left ventricular diastolic function is normal. The right ventricle is moderately dilated. The right ventricular systolic function is normal. The left atrium is mildly dilated. The right atrium size is normal. Mild aortic regurgitation by visualization, however, PHT suggests moderate AR. There is mild mitral valve regurgitation noted. There is no pericardial effusion.
--- NOTE | 2024-07-05 20:59 | NUR ---
NURSING ROUNDS PATIENT UP TO CHAIR WATCHING TELEVISION, IS ALERT AND ORIENTED X4, DENIES PAIN, NOTED WITH COUGH. COUGH MEDICATION PROVIDED, ALONG WITH SCHEDULED MEDICATIONS. CALL LIGHT WITHIN REACH, PATIENT INSTRUCTED TO CALL BEFORE GETTING UP SO STAFF MAY ASSIST GET BACK TO BED SAFE.
--- NOTE | 2024-07-05 22:34 | NUR ---
NURSING ROUNDS PATIENT REQUESTING ASSISTANCE BACK TO BED, PATIENT ABLE TO TRANSFER FROM CHAIR TO BED WITH MINIMAL ASSISTANCE FROM WALKER. IV TO LEFT AC PATIENT AND INFUSING LR AT 100ML/HR. HOB ELEVATED DUE TO COUGH PATIENT HAVING INTERMITTENTLY. CALL BUTTON, CELL PHONE AND OTHER BELONGINGS WITH IN REACH, BED ALARM ARMED.
[2024-07-06] VITALS (8 sets, daily range): BP systolic 123–161; BP diastolic 54–76; PULSE 61–96; RESP 16–17; TEMP 98.2–98.6; O2SAT 98
--- NOTE | 2024-07-06 02:45 | NUR ---
NURSING ROUNDS NO COUGH NOTED AT THIS TIME, PATIENT IN BED EYES CLOSED, RESPIRATIONS EVEN AND UNLABORED. HOB KEPT ELEVATED. CALL LIGHT CONTINUES ON BED ON TOP OF PATIENT.
[2024-07-06 06:12] LABS: BASOPHILS # (AUTO) 0.01 K/uL (0.00-0.20); BASOPHILS % (AUTO) 0.1 % (0.0-5.0); EOSINOPHILS # (AUTO) 0.01 K/uL (0.00-0.70); EOSINOPHILS % (AUTO) 0.1 % (0.0-8.0); HEMATOCRIT 29.8 % (36-48); IMMATURE GRANULOCYTE ABSOLUTE 0.11 K/uL (0-1); LYMPHOCYTES % (AUTO) 27.2 % (21.0-51.0); MEAN CORPUSCULAR HEMOGLOBIN 29.6 pg (27.0-33.0); MEAN CORPUSCULAR HGB CONC 33.2 g/dL (32.0-36.0); MONOCYTES # (AUTO) 0.6 K/uL (0.1-1.0); MONOCYTES % (AUTO) 8.8 % (3.0-13.0); NEUTROPHILS # (AUTO) 4.5 K/uL (1.8-7.7); NEUTROPHILS % (AUTO) 62.3 % (40.0-77.0); PLATELET COUNT (AUTO) 244 K/uL (130-400); RED BLOOD CELL COUNT(AUTO) 3.35 MIL/uL (4.00-5.50); WHITE BLOOD COUNT (AUTO) 7.3 K/uL (4.8-10.8)
[2024-07-06 06:30] LABS: ALBUMIN 2.3 g/dL (3.5-5.0); BILIRUBIN,TOTAL 0.2 mg/dL (0.2-1.0); CREATININE 0.8 mg/dL (0.5-1.0); MAGNESIUM 1.5 mg/dL (1.80-2.40); POTASSIUM 3.7 mmol/L (3.5-5.1); TOTAL PROTEIN, SERUM 6.1 g/dL (6.0-8.3)
--- NOTE | 2024-07-06 07:53 | PN ---
[facility] CARDIOLOGY PROGRESS NOTE Date Patient Seen: July 06, 2024 Time of Visit: 07:51 Interval History: [no events ] Physical Examination: GENERAL: [No acute distress.] HEAD: [Normal with no signs of head trauma.] EYES: [PERRLA, EOMI, conjunctiva and sclera normal.] ENT: [Hearing grossly intact, normal oropharynx.] NECK: [Supple without JVD. There is no tenderness, lymphadenopathy, or masses. No thyromegaly. Normal carotid upstrokes without bruits.] LUNGS: [Clear breath sounds bilaterally. There are right basilar rales one third of the way up the chest. No wheezes, or rhonchi.] HEART: [Normal rate and rhythm. Normal S1 and S2 without mumurs, gallop or rub.] VASC: [Peripheral pulses +2 bilaterally.] ABD: [Bowel sounds normal, soft, nontender, no masses, no organomegaly. No audible bruits.] : [Not examined] LYMPH: [No lymphadenopathy noted.] EXT: [No clubbing, cyanosis or edema.] SKIN: [No rashes or lesions noted.] NEURO: [Awake, alert, and oriented x3. No focal sensory or strength deficits noted.] Laboratory: [ ] Hematology Labs: Test 07/06/24 05:49 Range/Units White Blood Count 7.3 # 4.8-10.8 K/uL Red Blood Count 3.35 L 4.00-5.50 MIL/uL Hemoglobin 9.9 L 12.0-16.0 g/dL Hematocrit 29.8 L 36-48 % Mean Corpuscular Volume 89.0 79-99 fL Mean Corpuscular Hemoglobin 29.6 27.0-33.0 pg Mean Corpuscular Hemoglobin Concent 33.2 32.0-36.0 g/dL Red Cell Distribution Width 13.0 11.0-15.5 % Platelet Count 244 130-400 K/uL Mean Platelet Volume 9.6 7.5-10.5 fL Immature Granulocyte % (Auto) 1.5 H 0-1 % Neutrophils (%) (Auto) 62.3 40.0-77.0 % Lymphocytes (%) (Auto) 27.2 21.0-51.0 % Monocytes (%) (Auto) 8.8 3.0-13.0 % Eosinophils (%) (Auto) 0.1 0.0-8.0 % Basophils (%) (Auto) 0.1 0.0-5.0 % Neutrophils # (Auto) 4.5 1.8-7.7 K/uL Lymphocytes # (Auto) 2.0 1.0-4.8 K/uL Monocytes # (Auto) 0.6 0.1-1.0 K/uL Eosinophils # (Auto) 0.01 0.00-0.70 K/uL Basophils # (Auto) 0.01 0.00-0.20 K/uL Absolute Immature Granulocyte (auto 0.11 0-1 K/uL Nucleated Red Blood Cells 0.0 0.0-0.19 % Chemistry Labs: Test 07/06/24 05:49 07/06/24 05:42 07/05/24 06:48 Range/Units Sodium Level 137 136-145 mmol/L Potassium Level 3.7 3.5-5.1 mmol/L Chloride Level 102 101-111 mmol/L Carbon Dioxide Level 27 21-32 mmol/L Blood Urea Nitrogen 7 7-18 mg/dL Creatinine 0.8 0.5-1.0 mg/dL Glomerular Filtration Rate Calc 70 >90 mL/min Random Glucose 91 70-105 mg/dL Total Calcium 9.1 8.5-10.1 mg/dL Magnesium Level 1.50 L 1.80-2.40 mg/dL Total Bilirubin 0.2 # 0.2-1.0 mg/dL Aspartate Amino Transf (AST/SGOT) 85 H 10-37 U/L Alanine Aminotransferase (ALT/SGPT) 157 H 12-78 U/L Alkaline Phosphatase 134 50-136 U/L Total Protein 6.1 6.0-8.3 g/dL Albumin 2.3 L 3.5-5.0 g/dL Whole Blood Glucose 98 70-110 MG/DL Hemoglobin A1c 5.9 4.0-6.0 % Estimated Average Glucose (eAG) 123 70-126 mg/dL Lactic Acid Level 1.2 0.8-2.5 mmol/L Direct Bilirubin 0.2 0.0-0.3 mg/dL Ammonia 20 11-32 umol/L Total Creatine Kinase 23 # 21-232 U/L B-Type Natriuretic Peptide 251 H 0-100 pg/mL Procalcitonin < 0.05 L 0.05-0.5 ng/mL Diagnostics / Radiology: [Copy/Paste Echos/Imaging Report here] Impression and Plan: [Abnormal orthostatic vital signs Transaminitis Hypertension Dyslipidemia Early dementia History of hyperkalemia C on 11/21/2013 demonstrating takotsubo cardiomyopathy and nonobstructive CAD 2D echo on 09/13/2023 with an EF greater than 55% and stage I diastolic dysfunction Left eye surgery in 06/2024 Mild AR Abnormal orthostatic vital signs Orthostatic vital signs: Supine 123/66mmHg, hr 61 Sitting 133/50mmHg, hr 69 Standing 155/64mmHg, hr 71 Supine 161/65mmHg, hr 71 Sitting 170/69mmHg, hr 73 Standing 181/73mmHg, hr 80 -Will resume home Olmesartan (Pharmacy interchange for Losartan 50mg daily) -Will hold off on resuming beta-kirstin Coreg 6.25mg bid for now -Echocardiogram with normal LVEF and mild AR by color doppler but moderate by PHT, recommend outpatient CCTA -pending Carotid Doppler US are pending ] EVY KRISHNAMURTHY MD July 06, 2024 07:53
[2024-07-06] MEDS: ceTIRIzine HCL 5 MG TABLET PO SCH (08:09)
[2024-07-06] MEDS: SERTraline HCL 50 MG TABLET PO SCH (08:09)
[2024-07-06] MEDS: SUCRALFATE 1 GM TABLET PO SCH (08:09)
[2024-07-06] MEDS: NEOMYCIN/POLYMYXIN B/DEXAMETHASONE 5 ML OPHTH SUSP OS SCH (08:15)
--- NOTE | 2024-07-06 08:17 | PN ---
[facility] PROGRESS NOTE Date of Service: July 06, 2024 Time of Service: 08:[address] Leary SUBJECTIVE: [07/04/24 Patient is 89 years old female with a past medical history of hypertension, left eye recent surgery with the tube placement due to problems with tears?, depression, anxiety, hyperlipidemia, CKD, vitamin-D deficiency, gastritis, early dementia, who came to emergency department with a complaint of feeling of fainting and being lightheaded for the past about2 to 3 days. Family member at the bedside/daughter stated that patient has been walking the house with a feeling of fainting. Patient was also complaining of cough for the past about a month only at night. Patient denies any fever, chills.] Most recent vital signs temperature 98.6� pulse 67 respiration 18 blood pressure 157/67. Patient is on room air satting 99%. WBC 13.9 hemoglobin 10.7 hematocrit 32.5 Platelets [id number] potassium 3.6 CO2 26 BUN 19 creatinine 1.0 GFR 19 random glucose 113. Total calcium 9.1 . Influenza A negative. Influenza B negative. Urinalysis negative for leukocytosis or nitrates. Chest x-ray showed clear lungs. Echocardiogram 09/13/2023 showed EF more than 55% stage I diastolic dysfunction. No pericardial effusion. Patient will be admitted under hospitalist care for further evaluation/recommendations. 07/05/24 patient was seen by nurse practitioner physician during rounding in room 319. Influenza came back negative. Urine came back mixed romana contamination. Patient continues to be on Rocephin2 g daily WBC today went down 9.9. Chest x- ray showed clear lungs. We are still pending 2D echo. Orthostatic vital signs were performed and they are positive. Some blood pressure 155/64. We will consult Cardiology in the meantime. In the meantime we will also wait for PT evaluation. We will continue to monitor patient in the meantime. A.m. labs. 07/06/24 patient was seen by nurse practitioner and physician during rounding in room 319. Final urine culture is growing mixed romana. WBC today is 7.3. Patient continues to be on Rocephin 2 g daily. 2D echo came back EF 60 to 65% normal diastolic function. Ultrasound carotid pending. Pending further evaluation/recommendations of clerical office. Patient will receive 40 mEq of potassium for potassium of 3.7. Patient will also receive 2 g of magnesium for magnesium of 1.5. Home medication reconciled. We will continue to monitor patient in the meantime. A.m. labs. REVIEW OF SYSTEMS CONSTITUTIONAL: Denies fevers, chills, or night sweats. No unintentional weight loss reported. NEUROLOGICAL: Denies headache, amaurosis fugax, motor weakness, sensory deficit, vertigo/spinning sensation, gait abnormalities, or tremors. Lightheadedness generalized body weakness ENT: No hearing loss, otalgia, otorrhea, rhinitis, rhinorrhea, hoarseness, or sore throat. CARDIOVASCULAR: Denies any exertional angina, dyspnea on exertion, orthopnea, paroxysmal nocturnal dyspnea, palpitations, life-threatening arrhythmias, claudication. PULMONARY: Denies any shortness of breath, cough, phlegm/sputum, hemoptysis, pleuritic chest pain. SLEEP: Denies morning headaches, daytime somnolence or napping. Denies difficulty falling asleep, staying asleep, waking from sleep. Denies knowledge of snoring. GASTROINTESTINAL: Denies any type of dysphagia to either liquids or solids. Denies nausea, vomiting, pyrosis, early satiety, abdominal pain, diarrhea, constipation, or changes in stool consistency or caliber. Denies coffee-ground emesis, hematemesis, hematochezia, or melanotic stools. GENITOURINARY: Denies frequency, urgency, nocturia, hematuria or incontinence (Storage/Irritative symptoms.) Low urinary stream, straining to void, urinary intermittency or hesitancy, splitting of the voiding stream, terminal dribbling. ENDOCRINOLOGIC: Denies polyuria, polydipsia, polyphagia or heat/cold intolerances. HEMATOLOGIC: Denies thrombophilia/previous clots, or coagulopathy/bleeding disorders. ONCOLOGIC: Denies personal history of malignancy. DERMATOLOGIC: Denies rashes or pruritus. PSYCHIATRIC: Denies any suicidal or homicidal ideation. Denies hallucinations. PHYSICAL EXAM GENERAL APPEARANCE: The patient is awake, alert, and oriented, in no acute cardiopulmonary distress. NEUROLOGICAL: Cranial nerves II-XII grossly intact. Motor is 5/5 in bilateral upper and lower extremities proximal to distal. No sensory deficits. HEENT: Face is symmetric. Pupils are equal and reactive. Extraocular movements are intact. NECK: Supple. No JVD. No thyromegaly. No submental, submandibular, pre- /postauricular, occipital or supraclavicular lymphadenopathy. CHEST: Normal chest expansion. No Telemetry. LUNGS: Absence of any rales, rhonchi or any wheezing. CARDIOVASCULAR: Regular. S1 and S2 normal. No appreciable rubs, murmurs or gallops. ABDOMEN: Soft, nontender, and nondistended. There is no rebound, voluntary guarding, or rigidity. : Deferred. No Luciano. EXTREMITIES: Non-edematous and not cyanotic. No clubbing. Good capillary refill. SKIN: No skin breakdown. Vital Signs (last 8hr) Date Time Temp Pulse Resp B/P (MAP) Pulse Ox O2 Delivery O2 Flow Rate FiO2 07/06/24 05:48 80 127/66 07/06/24 05:48 96 160/76 07/06/24 05:48 73 149/74 07/06/24 03:54 98.4 61 16 123/55 94 Room Air LABS: Laboratory: Test 07/06/24 05:49 07/06/24 05:42 07/05/24 06:48 07/04/24 15:55 Range/Units White Blood Count 7.3 # 4.8-10.8 K/uL Red Blood Count 3.35 L 4.00-5.50 MIL/uL Hemoglobin 9.9 L 12.0-16.0 g/dL Hematocrit 29.8 L 36-48 % Mean Corpuscular Volume 89.0 79-99 fL Mean Corpuscular Hemoglobin 29.6 27.0-33.0 pg Mean Corpuscular Hemoglobin Concent 33.2 32.0-36.0 g/dL Red Cell Distribution Width 13.0 11.0-15.5 % Platelet Count 244 130-400 K/uL Mean Platelet Volume 9.6 7.5-10.5 fL Immature Granulocyte % (Auto) 1.5 H 0-1 % Neutrophils (%) (Auto) 62.3 40.0-77.0 % Lymphocytes (%) (Auto) 27.2 21.0-51.0 % Monocytes (%) (Auto) 8.8 3.0-13.0 % Eosinophils (%) (Auto) 0.1 0.0-8.0 % Basophils (%) (Auto) 0.1 0.0-5.0 % Neutrophils # (Auto) 4.5 1.8-7.7 K/uL Lymphocytes # (Auto) 2.0 1.0-4.8 K/uL Monocytes # (Auto) 0.6 0.1-1.0 K/uL Eosinophils # (Auto) 0.01 0.00-0.70 K/uL Basophils # (Auto) 0.01 0.00-0.20 K/uL Absolute Immature Granulocyte (auto 0.11 0-1 K/uL Nucleated Red Blood Cells 0.0 0.0-0.19 % Sodium Level 137 136-145 mmol/L Potassium Level 3.7 3.5-5.1 mmol/L Chloride Level 102 101-111 mmol/L Carbon Dioxide Level 27 21-32 mmol/L Blood Urea Nitrogen 7 7-18 mg/dL Creatinine 0.8 0.5-1.0 mg/dL Glomerular Filtration Rate Calc 70 >90 mL/min Random Glucose 91 70-105 mg/dL Total Calcium 9.1 8.5-10.1 mg/dL Magnesium Level 1.50 L 1.80-2.40 mg/dL Total Bilirubin 0.2 # 0.2-1.0 mg/dL Aspartate Amino Transf (AST/SGOT) 85 H 10-37 U/L Alanine Aminotransferase (ALT/SGPT) 157 H 12-78 U/L Alkaline Phosphatase 134 50-136 U/L Total Protein 6.1 6.0-8.3 g/dL Albumin 2.3 L 3.5-5.0 g/dL Whole Blood Glucose 98 70-110 MG/DL Hemoglobin A1c 5.9 4.0-6.0 % Estimated Average Glucose (eAG) 123 70-126 mg/dL Lactic Acid Level 1.2 0.8-2.5 mmol/L Direct Bilirubin 0.2 0.0-0.3 mg/dL Ammonia 20 11-32 umol/L Total Creatine Kinase 23 # 21-232 U/L B-Type Natriuretic Peptide 251 H 0-100 pg/mL Procalcitonin < 0.05 L 0.05-0.5 ng/mL Influenza Type A Antigen Negative For Type A NEGATIVE Influenza Type B Antigen Negative For Type B NEGATIVE Current Medications Medications (Trade) Dose Ordered Sig/Kayla Route PRN Reason Start Time Stop Time Status Last Admin Dose Admin Acetaminophen (TYLenol 325MG TAB) 650 mg Q4H PRN PO MILD PAIN (1-3) 07/04/24 09:30 08/03/24 09:29 07/05/24 23:20 650 MG Acetaminophen (TYLenol 325MG TAB) 650 mg Q6H PRN PO MILD PAIN (1-3) 07/04/24 09:30 07/04/24 09:34 DC Acetaminophen (TYLenol 325MG TAB) 650 mg Q6H PRN PO TEMPERATURE GREATER THAN 101.5 07/04/24 09:30 08/03/24 09:29 Al Hydroxide/Mg Hydroxide (MAALox PLUS 30ML) 30 ml Q6H PRN PO INDIGESTION 07/04/24 09:30 08/03/24 09:29 Atorvastatin Calcium (LIPItor 40MG) 40 mg HS PO 07/06/24 21:00 08/05/24 20:59 Ceftriaxone Sodium 2 gm/ Sodium Chloride 100 ml @ 200 mls/hr Q24H IV 07/04/24 09:30 07/04/24 09:35 DC Ceftriaxone Sodium (Rocephin 2gm Inj) 2 gm Q24H IVPB 07/04/24 10:00 07/14/24 09:59 07/05/24 09:05 2 GM Cetirizine HCl (ZYRtec 5 MG TABLET) 10 mg DAILY PO 07/06/24 09:00 08/05/24 08:59 07/06/24 08:09 10 MG Dextrose (D50w) 50 ml AD PRN IV HYPOGLYCEMIA PROTOCOL 07/04/24 09:30 07/06/24 08:10 DC Dextrose (D50w) 50 ml AD PRN IV HYPOGLYCEMIA PROTOCOL 07/06/24 08:30 08/05/24 08:29 UNV Diphenhydramine HCl (BENAdryl INJ) 25 mg Q6H PRN IV SEVERE ITCHING/RASH 07/04/24 09:30 08/03/24 09:29 Famotidine (Pepcid 20mg Vial) 20 mg BID PRN IV NAUSEA/VOMITING 07/04/24 09:30 07/04/24 09:35 DC Famotidine (Pepcid 20mg Vial) 20 mg QODAY IV 07/05/24 09:00 08/04/24 08:59 07/06/24 08:09 20 MG Fluticasone Propionate (FLOnase 50 mcg/ spray 16g bottle) 1 SPRAY DAILY EN 07/06/24 09:00 08/05/24 08:59 Glucagon (Glucagon 1mg Kit) 1 mg AD PRN IM HYPOGLYCEMIA PROTOCOL 07/04/24 09:30 07/06/24 08:10 DC Glucagon (Glucagon 1mg Kit) 1 mg AD PRN IM HYPOGLYCEMIA PROTOCOL 07/06/24 08:30 08/05/24 08:29 UNV Guaifenesin/ Dextromethorphan (RobiTUSSin DM 200/20MG 10ML) 10 ml Q4H PRN PO COUGH 07/04/24 09:30 08/03/24 09:29 07/05/24 23:53 10 ML Heparin Sodium (Porcine) (HEParin 5,000 UNIT VIAL) 5,000 unit BID SQ 07/04/24 21:00 08/03/24 20:59 07/05/24 20:11 5,000 UNIT Hydralazine HCl (APRESOLine 20MG INJ) 10 mg Q6H PRN IV For:SBP above 160;DBP above 90 07/04/24 09:30 08/03/24 09:29 Insulin Human Regular (humuLIN R 100 UNIT/ML 3ML) INSULIN SLIDING SCAL... ACHS SQ 07/04/24 11:30 07/06/24 08:10 DC Insulin Human Regular (humuLIN R 100 UNIT/ML 3ML) INSULIN SLIDING SCAL... ACHS SQ 07/06/24 11:30 08/05/24 11:29 UNV Ketorolac Tromethamine (toRADol) 15 mg Q8H PRN IV MODERATE PAIN (4-6) 07/04/24 09:30 07/04/24 09:37 DC Lactated Ringer's 1,000 ml @ 100 mls/hr Q10H IV 07/04/24 09:30 08/03/24 09:29 07/06/24 00:36 100 MLS/HR Lactated Ringer's (Lactated Ringers 1000ml) 1,000 ml BOLUS STAT IV 07/04/24 01:31 07/04/24 01:33 DC 07/04/24 03:51 1,000 ML Lactulose (Constulose 20gm/ 30ml Udcup) 20 gm BID PRN PO CONSTIPATION 07/04/24 09:30 08/03/24 09:29 Losartan Potassium (CozAAR 50 mg TAB) 50 mg DAILY PO 07/05/24 16:30 08/04/24 16:29 07/06/24 08:09 50 MG Magnesium Sulfate 50 ml @ 0 mls/hr PROTOCOL IV 07/05/24 10:00 07/05/24 09:54 DC Magnesium Sulfate 50 ml @ 0 mls/hr PROTOCOL PRN IV other 07/04/24 09:30 08/03/24 09:29 Magnesium Sulfate 50 ml @ 0 mls/hr PROTOCOL PRN IV other 07/06/24 08:30 08/05/24 08:29 UNV Memantine (NAmenDA 5 MG TAB) 5 mg HS PO 07/06/24 21:00 08/05/24 20:59 Morphine Sulfate (morPHINE 2MG SYG) 1 mg Q4H PRN IVP MODERATE PAIN (4-6) 07/04/24 09:30 07/11/24 09:29 Neomycin/ Polymyxin/ Dexamethasone (Maxitrol) 1 DROP BID OS 07/06/24 09:00 07/20/24 08:59 Nitroglycerin (Nitrostat) 0.4 mg PROTOCOL PRN SL CHEST PAIN 07/04/24 09:30 08/03/24 09:29 Ondansetron HCl (zoFRAN 4MG INJ) 4 mg Q6H PRN IV NAUSEA/VOMITING 07/04/24 09:30 08/03/24 09:29 Oxycodone/ Acetaminophen (perCOCET) 1 tab Q6H PRN PO SEVERE PAIN (7-10) 07/04/24 09:30 07/11/24 09:29 Potassium Chloride 100 ml @ 100 mls/hr AD PRN IV POTASSIUM PROTOCOL 07/04/24 09:30 07/06/24 08:10 DC Potassium Chloride 100 ml @ 100 mls/hr AD PRN IV POTASSIUM PROTOCOL 07/06/24 08:30 08/05/24 08:29 UNV Potassium Chloride (K-Dur 10meq Sr Tab) 10 meq AD PRN PO POTASSIUM PROTOCOL 07/05/24 08:30 08/03/24 09:29 Potassium Chloride (K-Dur/Klor-Con 20meq) 10 meq AD PRN PO POTASSIUM PROTOCOL 07/04/24 09:30 07/05/24 08:12 DC Potassium Chloride (K-Dur/Klor-Con 20meq) 10 meq AD PRN PO POTASSIUM PROTOCOL 07/06/24 08:30 08/05/24 08:29 UNV Potassium Chloride (KCl 10% Elixir 20meq/15ml) 10 meq AD PRN PO POTASSIUM PROTOCOL 07/04/24 09:30 07/06/24 08:10 DC Potassium Chloride (KCl 10% Elixir 20meq/15ml) 10 meq AD PRN PO POTASSIUM PROTOCOL 07/06/24 08:30 08/05/24 08:29 UNV Sertraline HCl (ZOloft 50 mg tab) 50 mg DAILY PO 07/06/24 09:00 08/05/24 08:59 07/06/24 08:09 50 MG Sucralfate (Carafate) 1 gm TID PO 07/06/24 09:00 08/05/24 08:59 07/06/24 08:09 1 GM Zolpidem Tartrate (AmbIEN) 5 mg HS PRN PO INSOMNIA 07/04/24 09:30 08/03/24 09:29 DIAGNOSTICS / RADIOLOGY: [ ] ASSESSMENT: [Generalized body weakness POA Lightheadedness POA orthostatic hypotension positive POA Electrolyte imbalance hyponatremia Na 127 POA Acute dehydration POA Acute on chronic diastolic congestive heart failure EF 60 to 65% 09/13/2023 uncontrolled diabetes mellitus type with hyperglycemia POA Leukocytosis WBC 13.9 POA Vitamin-D deficiency POA Gastritis POA Early dementia POA Hyperlipidemia POA Depression POA Anxiety POA History of left eye tube insertion of the right eye ] PLAN: [ Admit to: Medical-surgical Consults: Cardiology Antibiotics: Rocephin2 g daily Tests: Ultrasound carotid NEURO: Minimize central acting medications as possible. Fall Precautions. Well lighted room through the day and minimize interruptions through the night to prevent acute delirium. PULMONARY: Chest x-ray negative Influenza A negative Influenza B negative COVID negative Supplemental 02 as needed BiPAP as necessary, for respiratory distress Titrate Fio2 to keep Spo2 > or = 90% DuoNeb�s and CPT as needed IS hourly while awake for pulmonary hygiene Out of bed to chair as tolerated Maintain aspiration precautions at all times CARDIOVASCULAR: 2D echo EF 60 to 65% Ultrasound carotid pending Orthostatic vital signs positive Consult cardiology Follow hemodynamics. Vital signs per facility protocol GI & NUTRITION: Continue nutritional support Aspirations precautions Prokinetic agents and laxatives as needed KIDNEYS & ELECTROLYTES: Strict monitoring of intake and output Daily weights Avoid nephrotoxic agents Monitor electrolytes and replace as needed Goal urine output of 30mL/hr or 0.5mL/kg/hr Medications to be dosed according to renal function. Avoid contrast if possible ENDOCRINE: Maintain blood glucose between 100-180 at all times. Insulin sliding scale for blood glucose management Hypoglycemia and hyperglycemia protocol in place INFECTIOUS DISEASE: Trend temperature, WBC and procalcitonin level Follow cultures, deescalate antibiotics as soon as possible. Panculture if new onset fever HEMATOLOGY & COAGULATION: Monitor H&H. Keep Hgb > 7 Transfuse 1 unit of PRBC for Hgb < 7 Transfuse 1 pack of platelets of platelets < 20, 000 Watch for any signs and symptoms of bleeding SKIN: Pressure ulcer prevention per facility protocol Specialty mattress as needed Treatment plan discussed with patient and family at the bedside Medications to be reconciled once obtained by patient and/or family and available to be reconciled in computer p.r.n. medication for pain nausea and vomiting Questions were answered We will continue to monitor the patient closely As per disease case manager patient to be discharged home once medically cleared Rehab: PT/OT GI: PPI DVT: SCD's Code Status: Full Resuscitation Disposition: Home Prognosis: Guarded] ATTESTATION BY PHYSICIAN I have seen and examined the patient. I reviewed the documentation, medical decision making, and treatment plan as noted by the mid-level provider above. I agree with the findings and plan of care. SUSAN LEARY MD, KATARZYNA B [employer] H[employer] TRIMMER July 06, 2024 08:17
[2024-07-06] MEDS: PoTASSium chloRIDE 20MEQ ER 20 MEQ ERTAB PO ONE (08:18)
[2024-07-06] MEDS: amLODIPine 5 MG TAB PO SCH (08:22)
[2024-07-06] MEDS: carVEDIlol 6.25 MG TABLET PO SCH (08:22)
[2024-07-06] MEDS: fluTICasone proPIONate 50MCG/SPRAY 16 GM BOTTLE EN SCH (08:22)
[2024-07-06] MEDS: MAGNESIUM 2GM PREMIX 50ML 50 ML IV SCH (08:22)
[2024-07-06] MEDS ORDERED: PoTASSium chloRIDE 10MEQ/100ML 100 ML IV PRN (08:30)
[2024-07-06] MEDS ORDERED: PoTASSium chl 10% ELIXIR 20MEQ 20 MEQ/15 ML UDCUP PO PRN (08:30)
[2024-07-06] MEDS ORDERED: DEXTROSE 50%-WATER 50 ML DISP.SYRIN IV PRN (08:30)
[2024-07-06] MEDS ORDERED: PoTASSium chloRIDE 20MEQ ER 20 MEQ ERTAB PO PRN (08:30)
[2024-07-06] MEDS ORDERED: GLUCAGON 1MG KIT 1 MG ML IM PRN (08:30)
[2024-07-06] MEDS ORDERED: MAGNESIUM 2GM PREMIX 50ML 50 ML IV PRN (08:30)
--- NOTE | 2024-07-06 10:10 | HMCIMG ---
Carotid Duplex and color-flow Doppler bilateral Clinical Information: syncopy Comparison: None Findings: Mild bilateral bifurcation plaque is seen. No hemodynamically significant stenosis noted. Left Internal Carotid Artery Peak Systolic Velocity (PSV), Left Internal Carotid to Common Carotid Artery peak systolic velocity ratio, Right Internal Carotid Artery Peak Systolic Velocity (PSV) and Right Internal Carotid to Common Carotid Artery peak systolic velocity ratio, are all within normal limits. External carotid artery velocities normal bilaterally. Bilateral vertebral arteries show normal velocities and waveforms with antegrade flow. Impression: No hemodynamically significant stenosis noted. NASCET CRITERIA. The degree of internal carotid artery stenosis is based on NASCET criteria. Normal is no stenosis. Mild is less than 50% stenosis. Moderate is 50-69% stenosis. Severe is 70% to 99% stenosis. Total occlusion is no detectable patent lumen.
[2024-07-06] MEDS: INSULIN humuLIN R 100 UNIT/ML 3ML SQ SCH (11:30)
[2024-07-06] MEDS: LACTULOSE 20 GM/30 ML UDCUP PO PRN (13:10)
[2024-07-06] MEDS ORDERED: AMOX1TAB16 PO (16:18)
--- NOTE | 2024-07-06 16:22 | DS ---
Discharge Summary Hospital Course Summary: DATE OF ADMISSION:[07/03/2024] DATE OF DISCHARGE:[07/06/2024] DISPOSITION:[Home] CONDITION:[Medically stable] CONSULTANTS:[[employer]] FOLLOW UP APPOINTMENTS: PCP 2 to 3 days. [employer] within 1 to 2 weeks [] PROCEDURES:[] None IMAGING: report attached to summary MICROBIOLOGY: report attached to summary ACTIVITY:[Independent] HOME MEDICATIONS: see [facility] NEW MEDICATIONS:[Augmentin 875 p.o. b.i.d.] EMERGENCY INSTRUCTIONS: The patient was instructed to present to the nearest Emergency departmentr or call 911 once their symptoms will return or worsen Patient Care Director(s): Patient is 89 years old female came to emergency department with a complaint of lightheadedness for 2 to 3 days prior to admission. Chest x-ray was performed showed clear lungs. 2D echo was performed shows 60 to 65% normal function. Orthostatics were positive. Cardiology was consulted. Ultrasound carotid was ordered and was negative. Urine showed mixed romana. After consultation with the transmitter chief patient was cleared to be discharged home due to negative results. Troponins negative as well. WBC on admission were 13.9 at this moment are 7.3 urine culture was negative. Patient will be discharged on Augmentin prophylaxis for seven days. Patient was advised to follow up outpatient with the PCP in 2 to 3 days. Also follow up with transmitter chief within one week's Procedure(s): REVIEW OF SYSTEMS CONSTITUTIONAL: Denies fevers, chills, or night sweats. No unintentional weight loss reported. NEUROLOGICAL: Denies headache, amaurosis fugax, motor weakness, sensory deficit, vertigo/spinning sensation, gait abnormalities, or tremors. Denies any body weakness ENT: No hearing loss, otalgia, otorrhea, rhinitis, rhinorrhea, hoarseness, or sore throat. CARDIOVASCULAR: Denies any exertional angina, dyspnea on exertion, orthopnea, paroxysmal nocturnal dyspnea, palpitations, life-threatening arrhythmias, claudication. PULMONARY: Denies any shortness of breath, cough, phlegm/sputum, hemoptysis, pleuritic chest pain. SLEEP: Denies morning headaches, daytime somnolence or napping. Denies difficulty falling asleep, staying asleep, waking from sleep. Denies knowledge of snoring. GASTROINTESTINAL: Denies any type of dysphagia to either liquids or solids. Denies nausea, vomiting, pyrosis, early satiety, abdominal pain, diarrhea, constipation, or changes in stool consistency or caliber. Denies coffee-ground emesis, hematemesis, hematochezia, or melanotic stools. GENITOURINARY: Denies frequency, urgency, nocturia, hematuria or incontinence (Storage/Irritative symptoms.) Low urinary stream, straining to void, urinary intermittency or hesitancy, splitting of the voiding stream, terminal dribbling. ENDOCRINOLOGIC: Denies polyuria, polydipsia, polyphagia or heat/cold intolerances. HEMATOLOGIC: Denies thrombophilia/previous clots, or coagulopathy/bleeding disorders. ONCOLOGIC: Denies personal history of malignancy. DERMATOLOGIC: Denies rashes or pruritus. PSYCHIATRIC: Denies any suicidal or homicidal ideation. Denies hallucinations. PHYSICAL EXAM GENERAL APPEARANCE: The patient is awake, alert, and oriented, in no acute cardiopulmonary distress. NEUROLOGICAL: Cranial nerves II-XII grossly intact. Motor is 5/5 in bilateral upper and lower extremities proximal to distal. No sensory deficits. HEENT: Face is symmetric. Pupils are equal and reactive. Extraocular movements are intact. NECK: Supple. No JVD. No thyromegaly. No submental, submandibular, pre- /postauricular, occipital or supraclavicular lymphadenopathy. CHEST: Normal chest expansion. No Telemetry. LUNGS: Absence of any rales, rhonchi or any wheezing. CARDIOVASCULAR: Regular. S1 and S2 normal. No appreciable rubs, murmurs or gallops. ABDOMEN: Soft, nontender, and nondistended. There is no rebound, voluntary guarding, or rigidity. : Deferred. No Luciano. EXTREMITIES: Non-edematous and not cyanotic. No clubbing. Good capillary refill. SKIN: No skin breakdown. Assessment/Plan: ASSESSMENT: [Generalized body weakness POA Lightheadedness POA orthostatic hypotension positive POA Electrolyte imbalance hyponatremia Na 127 POA Acute dehydration POA Acute on chronic diastolic congestive heart failure EF 60 to 65% 09/13/2023 uncontrolled diabetes mellitus type with hyperglycemia POA Leukocytosis WBC 13.9 POA Vitamin-D deficiency POA Gastritis POA Early dementia POA Hyperlipidemia POA Depression POA Anxiety POA History of left eye tube insertion of the right eye ] PLAN: [ Admit to: Medical-surgical Consults: Cardiology Antibiotics: Rocephin2 g daily Tests: Ultrasound carotid NEURO: Minimize central acting medications as possible. Fall Precautions. Well lighted room through the day and minimize interruptions through the night to prevent acute delirium. PULMONARY: Chest x-ray negative Influenza A negative Influenza B negative COVID negative Supplemental 02 as needed BiPAP as necessary, for respiratory distress Titrate Fio2 to keep Spo2 > or = 90% DuoNeb�s and CPT as needed IS hourly while awake for pulmonary hygiene Out of bed to chair as tolerated Maintain aspiration precautions at all times CARDIOVASCULAR: 2D echo EF 60 to 65% Ultrasound carotid pending Orthostatic vital signs positive Consult cardiology Follow hemodynamics. Vital signs per facility protocol GI & NUTRITION: Continue nutritional support Aspirations precautions Prokinetic agents and laxatives as needed KIDNEYS & ELECTROLYTES: Strict monitoring of intake and output Daily weights Avoid nephrotoxic agents Monitor electrolytes and replace as needed Goal urine output of 30mL/hr or 0.5mL/kg/hr Medications to be dosed according to renal function. Avoid contrast if possible ENDOCRINE: Maintain blood glucose between 100-180 at all times. Insulin sliding scale for blood glucose management Hypoglycemia and hyperglycemia protocol in place INFECTIOUS DISEASE: Trend temperature, WBC and procalcitonin level Follow cultures, deescalate antibiotics as soon as possible. Panculture if new onset fever HEMATOLOGY & COAGULATION: Monitor H&H. Keep Hgb > 7 Transfuse 1 unit of PRBC for Hgb < 7 Transfuse 1 pack of platelets of platelets < 20, 000 Watch for any signs and symptoms of bleeding SKIN: Pressure ulcer prevention per facility protocol Specialty mattress as needed Treatment plan discussed with patient and family at the bedside Medications to be reconciled once obtained by patient and/or family and available to be reconciled in computer p.r.n. medication for pain nausea and vomiting Questions were answered We will continue to monitor the patient closely As per corrections caseworker patient to be discharged home once medically cleared Rehab: PT/OT GI: PPI DVT: SCD's Code Status: Full Resuscitation Disposition: Home Prognosis: Guarded] Home Medications: Reported Medications Javed/Polymyx B Sulf/Dexameth (Siohve-Scbda-Lcmhkmwm Eye Drop) 3.5 Mg/Ml-10,000 Unit/Ml-0.1 % Drops.susp, 1 DROP OS BID 07/04/24 Fluticasone Propionate (Flonase Nasal [place]) 50 Mcg/Actuation [place], 1 SPRY EN DAILY 07/04/24 Amlodipine Besylate (Amlodipine Besylate) 5 Mg Tablet, 1 TAB PO DAILY 07/04/24 Cetirizine HCl (Cetirizine HCl) 10 Mg Tablet, 1 TAB PO DAILY 07/04/24 Memantine HCl (Memantine HCl) 5 Mg Tablet, 5 MG PO HS, TAB 07/04/24 Sertraline HCl (Sertraline HCl) 50 Mg Tablet, 1 TAB PO DAILY 07/04/24 Sucralfate (Sucralfate) 1 Gram Tablet, 1 GM PO TID, TAB 11/09/23 Famotidine (Famotidine) 20 Mg Tablet, 20 MG PO BID, TAB 11/09/23 Olmesartan Medoxomil (Olmesartan Medoxomil) 20 Mg Tablet, 20 MG PO DAILY, TAB 09/11/23 Carvedilol (Carvedilol) 6.25 Mg Tablet, 6.25 MG PO BID, TAB 09/11/23 Atorvastatin Calcium (Atorvastatin Calcium) 40 Mg Tablet, 40 MG PO HS, TAB 11/02/18 Oxybutynin Chloride (Oxybutynin Chloride) 5 Mg Tablet, 5 MG PO HS, TAB 11/02/18 Discontinued Reported Medications Amiloride HCl (Amiloride HCl) 5 Mg Tablet, 5 MG PO DAILY, TAB 11/09/23 Time spent arranging discharge: 31-60 minutes ATTESTATION BY PHYSICIAN I have seen and examined the patient. I reviewed the documentation, medical decision making, and treatment plan as noted by the mid-level provider above. I agree with the findings and plan of care. SUSAN LEARY MD, [facility] [employer] July 06, 2024 16:22
--- NOTE | 2024-07-06 17:08 | NUR ---
Discharge instructions given and explained to the glennatent and her daughter. PIV is removed. All belongings are packed by the patient's daughter. She is then wheeled downstairs in a wheelchair and they departed in a private vehicle.
[2024-07-06] MEDS ORDERED: MEMANtine HCL 5 MG TABLET PO SCH (21:00)
[2024-07-06] MEDS ORDERED: atorVAStatin 40 MG TABLET PO SCH (21:00)
[2024-07-07] MEDS ORDERED: LoSARTan 100 MG TABLET PO SCH (09:00)
[2024-07-07] MEDS ORDERED: FAMOTIDINE 20MG TAB PO SCH (09:00)
--- NOTE | 2024-07-08 09:26 | NUR ---
Transitional Phone Call Attempted to call twice, no voice mail box available, other number disconnected [phone].
[2024-07-15] MEDS ORDERED: ERGO500093 PO (15:56)
== END 2024-07-06 17:08 | disposition home or self-care (01) | DRG 291 ==
LOC: EDH 23:10 → EDHIP 07-04 07:01 → 3CH 07-04 14:10
PROVIDERS: ADMIT Internal Medicine; ATTEND Internal Medicine
DX: I13.0 Hypertensive heart and chronic kidney disease with heart failure and stage 1 through stage 4 chronic kidney disease, or unspecified chronic kidney disease (principal); I50.33 Acute on chronic diastolic (congestive) heart failure; E87.1 Hypo-osmolality and hyponatremia; F03.93 Unspecified dementia, unspecified severity, with mood disturbance; F03.94 Unspecified dementia, unspecified severity, with anxiety; E11.22 Type 2 diabetes mellitus with diabetic chronic kidney disease; E55.9 Vitamin D deficiency, unspecified; E78.5 Hyperlipidemia, unspecified; E86.0 Dehydration; F32.A Depression, unspecified; K29.70 Gastritis, unspecified, without bleeding; I25.10 Atherosclerotic heart disease of native coronary artery without angina pectoris; N18.9 Chronic kidney disease, unspecified; E11.65 Type 2 diabetes mellitus with hyperglycemia; I35.0 Nonrheumatic aortic (valve) stenosis; I95.1 Orthostatic hypotension; Z79.899 Other long term (current) drug therapy
CPT/HCPCS: 36415; 71045; 80048; 80053; 80076; 81001; 82140; 82550; 82948; 83036; 83605; 83735; 83880; 84145; 85025; 87086; 87804; 93306; 93356; 93880; 96374; 99285; G0378; J0696; J1644; J3475; J3490; J7120

== ENCOUNTER → 2024-09-01 | Outpatient (CLI) | payer MEDICARE, MEDICAID ==
[~2024-09-01] MED LIST changes: -AMIL5TAB8 PO; +AMLO-257 PO; +ERGO500093 PO; +FLUT16H EN; +MEMA5TAB16 PO; +NEO/5DRO7 OS; -OLME20TA68 PO; +SERT-439 PO
--- NOTE | 2024-09-02 15:36 | HMCIMG ---
EXAM: CT left Knee without IV contrast CLINICAL HISTORY: INSTABILITY, LEFT KNEE TECHNIQUE: Axial images were acquired through the left knee without IV contrast. Reformatted images were reviewed. COMPARISON: None provided. FINDINGS: BONES: Bone density appears reduced, needs correlation with DEXA study. There are mild degenerative osteoarthritic changes in the tibiofemoral joint with asymmetric medial joint space reduction and mild subarticular sclerosis. No acute fracture or aggressive appearing osseous lesion. JOINTS: No dislocation. SOFT TISSUES: The soft tissues are unremarkable. Vascular calcifications are noted. IMPRESSION: 1. No fracture or dislocation in the left knee. 2. 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 /[place]
== END | disposition home or self-care (01) ==
LOC: RAH 12:56
PROVIDERS: ATTEND Family Medicine
DX: M17.12 Unilateral primary osteoarthritis, left knee (principal); M85.88 Other specified disorders of bone density and structure, other site; M25.362 Other instability, left knee
CPT/HCPCS: 73700